=== PATIENT | male | born 1955 | race Caucasian/White ===

== ENCOUNTER 2018-06-29 23:14 | Emergency (ER) | payer BC, MEDICARE ==
[~2018-06-29 23:14] MED LIST: CEP500 PO; FEN145 PO; GLUC500C29 PO; GUALA600 PO; IBU800 PO; LANS30CA70 PO; LOR75 PO; MULT1CAP41 PO; NIA100 PO; NIAC100T35 PO
--- NOTE | 2018-06-29 23:21 | ER Report ---
History and Physical Time Seen By MD: 23:21 HPI/ROS CHIEF COMPLAINT: Dental pain, bloating HISTORY OF PRESENT ILLNESS: 63-year-old male presents ambulatory to the ER with 2-3 weeks of abdominal bloating and pain in the epigastrium radiating to his back. He describes 5/10 pain crampy in nature with intermittent changes. Patient notes no vomiting. He's had some mild nausea when the pain is severe. Patient's notes no hematuria or dysuria. Patient notes no change in bowel habits usually has 3 bowel movements per day. He takes note no blood in his stool. States it's been 5 years since he's had a colonoscopy which last one was unremarkable. Patient denies fever or chills. Patient notes no exacerbating or alleviating factors. REVIEW OF SYSTEMS: Respiratory: No cough, no dyspnea. Cardiovascular: No chest pain, no palpitations. Gastrointestinal: As above Musculoskeletal: As above Allergies: Uncoded Allergies: DOGS (Allergy, Mild, SINUS DRAINAGE, 12/18/07) DUST (Allergy, Mild, SINUS INFECTION, 12/18/07) FEATHERS (Allergy, Mild, SINUS DRAINAGE, 12/18/07) Home Meds Reported Medications Ranitidine Hcl (ZANTAC) 150 Mg Tablet, 150 MG PO BID, TAB 06/30/18 Pravastatin Sodium (PRAVACHOL) 20 Mg Tablet, 20 MG PO QDAY, TAB 06/30/18 Pantoprazole Sodium (PANTOPRAZOLE SODIUM) 40 Mg Tablet.dr, 40 MG PO QDAY, TAB.SR 06/30/18 Glimepiride (GLIMEPIRIDE) 2 Mg Tablet, 2 MG PO QDAY 06/30/18 Montelukast Sodium (SINGULAIR) 10 Mg Tablet, 1 TAB PO QDAY, TAB 06/30/18 Lisinopril (LISINOPRIL) 40 Mg Tablet, 40 MG PO QDAY, TAB 06/30/18 Metformin Hcl (METFORMIN HCL) 1,000 Mg Tablet, 1 TAB PO BID, TAB 06/30/18 Ibuprofen (Motrin) 800 Mg Tab, 0 PO Q8H, #30 0 Refills ONE TABLET BY MOUTH EVERY EIGHT HOURS NEEDED FOR PAIN 12/18/07 Multivitamins W-Minerals (Multivitamin) 1 Cap Capsule, 1 CAP PO DAILY 12/18/07 Niacin (Niacin) 100 Mg Tablet, 100 MG PO BID 12/18/07 Glucosamine Sulfate (Glucosamine) 500 Mg Capsule, 500 MG PO 12/18/07 Discontinued Reported Medications Acetaminophen/Hydrocodone (Lortab 7.5/500) 7.5 Mg/500 Mg Tab, 1 TAB PO Q4-6H, #20 ONE TABLET BY MOUTH EVERY 6-8 HOURS NEEDED FOR MODERATE PAIN 12/18/07 Cephalexin Monohydrate (Keflex) 500 Mg Cap, 0 PO QID, #20 0 Refills ONE TABLET BY MOUTH TWICE A DAY FOR 5 DAYS 12/18/07 Guaifenesin (Guaifenesin) 600 Mg Tabcr, 600 MG PO BID 12/18/07 Lansoprazole (Prevacid) 30 Mg Capsule.dr, 30 MG PO QDAY 12/18/07 Fenofibrate,Micronized (Tricor (Or Equiv)) 50 Mg Cap, 50 MG PO QDAY 12/18/07 Past Medical/Surgical History Past medical history: Hypertension, hypercholesterolemia, type II diabetes. Past surgical history ankle fracture, collar bone fracture, orthopedic procedures Reviewed Nurses Notes: Yes Old Medical Records Reviewed: Yes Constitutional Vital Sign - Last 24 Hours 06/29/18 06/29/18 06/29/18 06/29/18 23:18 23:22 23:29 23:44 Temp 97.8 Pulse 89 91 95 Resp 16 B/P (MAP) 139/81 139/81 (100) Pulse Ox 88 92 89 O2 Delivery Room Air 06/29/18 06/30/18 06/30/18 06/30/18 23:59 00:04 00:19 00:34 Pulse 86 88 86 ??? Pulse Ox 89 86 92 06/30/18 06/30/18 06/30/18 06/30/18 01:04 01:19 01:21 01:30 Pulse 78 75 B/P (MAP) 121/77 (92) 114/69 (84) Pulse Ox 89 92 06/30/18 06/30/18 01:34 01:44 Pulse 73 89 Resp 18 B/P (MAP) 114/69 (84) Pulse Ox 95 95 O2 Delivery Room Air Intake and Output 06/29/18 06/29/18 06/30/18 15:00 23:00 07:00 Intake Total 1000 ml Balance 1000 ml Physical Exam General Appearance: The patient is alert, has no immediate need for airway protection and no current signs of toxicity. No acute distress, vital signs stable, afebrile, pulse ox normal Eyes: Pupils equal and round no injection. Anicteric sclera Respiratory: Chest is non tender, lungs are clear to auscultation. Cardiac: regular rate and rhythm Gastrointestinal: Abdomen is soft, mild distention, mild epigastric tenderness, no organomegaly, no masses, bowel sounds normal. Musculoskeletal: Neck: Neck is supple and non tender. No lymphadenopathy Extremities have full range of motion and are non tender. No edema Skin: No rashes or lesions. DIFFERENTIAL DIAGNOSIS: After history and physical exam differential diagnosis was considered for abdominal pain including but not limited to appendicitis, cholecystitis, gastritis and urinary tract infection. Additionally,back pain including but not limited to muscular pain, herniated disc, spine fracture, intra-abdominal causes and urinary tract infection. Medical Decision Making Data Points Result Diagram: 06/29/18 3467 06/29/18 6871 Laboratory Hematology Test 06/29/18 23:28 06/29/18 23:59 Urine Color Yellow Urine Clarity Clear Urine pH 5.0 pH (4.8-9.5) Urine Specific [place] 1.014 Urine Protein Negative mg/dL (NEGATIVE) Urine Glucose (UA) 500 mg/dL (NEGATIVE) Urine Ketones Negative mg/dL (NEGATIVE) Urine Blood Negative (NEGATIVE) Urine Nitrite Negative (NEGATIVE) Urine Bilirubin Negative (NEGATIVE) Urine Urobilinogen Negative mg/dL (0.2-1.9) Urine Leukocyte Esterase Negative (NEGATIVE) Urine RBC <1 /HPF (0-2/HPF) Urine WBC 1 /HPF (0-5/HPF) Urine Squamous Epithelial Cells None /LPF (</=FEW) Urine Bacteria Negative /HPF (NONE-FEW) Urine Mucus None /HPF (NONE-FEW) Red Blood Count 5.56 M/uL (4.00-5.60) Mean Corpuscular Volume 92.2 fL (80.0-96.0) Mean Corpuscular Hemoglobin 31.5 pg (26.0-33.0) Mean Corpuscular Hemoglobin Concent 34.2 g/dL (32.0-36.0) Red Cell Distribution Width 13.8 % (11.5-14.5) Mean Platelet Volume 10.0 fL (7.2-11.1) Neutrophils (%) (Auto) 68.7 % (39.4-72.5) Lymphocytes (%) (Auto) 18.6 % (17.6-49.6) Monocytes (%) (Auto) 10.8 % (4.1-12.4) Eosinophils (%) (Auto) 1.2 % (0.4-6.7) Basophils (%) (Auto) 0.7 % (0.3-1.4) Nucleated RBC Relative Count (auto) 0.1 /100WBC Neutrophils # (Auto) 7.7 K/uL (2.0-7.4) Lymphocytes # (Auto) 2.1 K/uL (1.3-3.6) Monocytes # (Auto) 1.2 K/uL (0.3-1.0) Eosinophils # (Auto) 0.1 K/uL (0.0-0.5) Basophils # (Auto) 0.1 K/uL (0.0-0.1) Nucleated RBC Absolute Count (auto) 0.01 K/uL Prothrombin Time 12.4 seconds (12.0-14.4) Prothromb Time International Ratio 0.93 Activated Partial Thromboplast Time 32 seconds (23-35) Sodium Level 135 mmol/L (137-145) Potassium Level 4.1 mmol/L (3.5-5.0) Chloride Level 101 mmol/L (98-107) Carbon Dioxide Level 20 mmol/L (22-30) Blood Urea Nitrogen 34 mg/dl (9-21) Creatinine 1.60 mg/dl (0.66-1.25) Glomerular Filtration Rate Calc 43.7 Random Glucose 158 mg/dl (75-110) Calcium Level 9.9 mg/dl (8.4-10.2) Total Bilirubin 0.8 mg/dl (0.2-1.3) Aspartate Amino Transf (AST/SGOT) 18 U/L (0-35) Alanine Aminotransferase (ALT/SGPT) 25 U/L (0-56) Alkaline Phosphatase 59 U/L (0-126) Troponin I < 0.012 ng/ml Total Protein 7.2 g/dl (6.3-8.2) Albumin 3.9 g/dl (3.5-5.0) Amylase Level 80 U/L (0-110) Lipase 131 U/L (23-300) Chemistry Test 06/29/18 23:28 10/20/18 23:59 Urine Color Yellow Urine Clarity Clear Urine pH 5.0 pH (4.8-9.5) Urine Specific [place] 1.014 Urine Protein Negative mg/dL (NEGATIVE) Urine Glucose (UA) 500 mg/dL (NEGATIVE) Urine Ketones Negative mg/dL (NEGATIVE) Urine Blood Negative (NEGATIVE) Urine Nitrite Negative (NEGATIVE) Urine Bilirubin Negative (NEGATIVE) Urine Urobilinogen Negative mg/dL (0.2-1.9) Urine Leukocyte Esterase Negative (NEGATIVE) Urine RBC <1 /HPF (0-2/HPF) Urine WBC 1 /HPF (0-5/HPF) Urine Squamous Epithelial Cells None /LPF (</=FEW) Urine Bacteria Negative /HPF (NONE-FEW) Urine Mucus None /HPF (NONE-FEW) White Blood Count 11.3 k/uL (4.5-11.0) Red Blood Count 5.56 M/uL (4.00-5.60) Hemoglobin 17.5 g/dL (14.0-18.0) Hematocrit 51.3 % (42.0-52.0) Mean Corpuscular Volume 92.2 fL (80.0-96.0) Mean Corpuscular Hemoglobin 31.5 pg (26.0-33.0) Mean Corpuscular Hemoglobin Concent 34.2 g/dL (32.0-36.0) Red Cell Distribution Width 13.8 % (11.5-14.5) Platelet Count 233 K/uL (150-450) Mean Platelet Volume 10.0 fL (7.2-11.1) Neutrophils (%) (Auto) 68.7 % (39.4-72.5) Lymphocytes (%) (Auto) 18.6 % (17.6-49.6) Monocytes (%) (Auto) 10.8 % (4.1-12.4) Eosinophils (%) (Auto) 1.2 % (0.4-6.7) Basophils (%) (Auto) 0.7 % (0.3-1.4) Nucleated RBC Relative Count (auto) 0.1 /100WBC Neutrophils # (Auto) 7.7 K/uL (2.0-7.4) Lymphocytes # (Auto) 2.1 K/uL (1.3-3.6) Monocytes # (Auto) 1.2 K/uL (0.3-1.0) Eosinophils # (Auto) 0.1 K/uL (0.0-0.5) Basophils # (Auto) 0.1 K/uL (0.0-0.1) Nucleated RBC Absolute Count (auto) 0.01 K/uL Prothrombin Time 12.4 seconds (12.0-14.4) Prothromb Time International Ratio 0.93 Activated Partial Thromboplast Time 32 seconds (23-35) Glomerular Filtration Rate Calc 43.7 Calcium Level 9.9 mg/dl (8.4-10.2) Total Bilirubin 0.8 mg/dl (0.2-1.3) Aspartate Amino Transf (AST/SGOT) 18 U/L (0-35) Alanine Aminotransferase (ALT/SGPT) 25 U/L (0-56) Alkaline Phosphatase 59 U/L (0-126) Troponin I < 0.012 ng/ml Total Protein 7.2 g/dl (6.3-8.2) Albumin 3.9 g/dl (3.5-5.0) Amylase Level 80 U/L (0-110) Lipase 131 U/L (23-300) Coagulation Test 06/29/18 23:59 Prothrombin Time 12.4 seconds Prothromb Time International Ratio 0.93 Activated Partial Thromboplast Time 32 seconds Urinalysis Test 06/29/18 23:28 Urine Color Yellow Urine Clarity Clear Urine pH 5.0 pH (4.8-9.5) Urine Specific [place] 1.014 Urine Protein Negative mg/dL (NEGATIVE) Urine Glucose (UA) 500 mg/dL (NEGATIVE) Urine Ketones Negative mg/dL (NEGATIVE) Urine Blood Negative (NEGATIVE) Urine Nitrite Negative (NEGATIVE) Urine Bilirubin Negative (NEGATIVE) Urine Urobilinogen Negative mg/dL (0.2-1.9) Urine Leukocyte Esterase Negative (NEGATIVE) Urine RBC <1 /HPF (0-2/HPF) Urine WBC 1 /HPF (0-5/HPF) Urine Squamous Epithelial Cells None /LPF (</=FEW) Urine Bacteria Negative /HPF (NONE-FEW) Urine Mucus None /HPF (NONE-FEW) EKG/Imaging EKG Interpretation 12 lead EK Rhythm: normal sinus rhythm [place]: normal QRS: normal ST segments: normaL , no evidence of ischemia or dysrhythmia Imaging Results: CT scan of the abdomen and pelvis without contrast was obtained. The results of the study are CT of the abdomen and pelvis without contrast: Indication: Back pain and bloating. Technique: Helical CT was performed through the abdomen and pelvis without contrast. Multiplanar reconstructions are reviewed. One of the following dose optimization techniques was utilized in the performance of this exam: Automated exposure control; adjustment of the mA and/or kV according to the patient's size; or use of an iterative reconstruction technique. Specific details can be referenced in the facility's radiology CT exam operational policy. Comparison: 05/25/2010 Lower lung [place]: There is minimal linear atelectasis at the right base. No parenchymal consolidation or pleural effusion is identified. Liver: Normal in size, shape, and density. Gallbladder/biliary tree: The gallbladder is normal in size and homogeneous in density. The bile ducts are normal in caliber. Pancreas: Normal in size, shape, and density. Spleen: Normal in size, shape, and density. A tiny accessory spleen is incidentally noted. Adrenal glands: Within normal limits. Kidneys/urinary bladder: The kidneys are normal in size, shape, and density. There are no signs of urinary tract calculus or obstruction. The bladder is unremarkable, as visualized. Intestinal structures: There is moderate diverticulosis in the sigmoid colon. There are no signs of acute diverticulitis. The appendix appears normal. There are no signs of intestinal obstruction. Pelvis: There is a small uncomplicated left inguinal hernia. The pelvis is otherwise unremarkable. Aorta and vascular structures: Within normal limits. Ascites or fluid collections: None seen. Skeletal structures: There are marked degenerative changes and large osteophytes in the lower thoracic spine and lower lumbar spine. No acute skeletal deformity is identified. Impression: No acute process is identified in the abdomen or pelvis. The study was read by the radiologist. I viewed the images myself on the PACS system. ED Course/Re-evaluation Clinical Indication for ER IV: Hydration, IV Access ED Course Patient was admitted to an examination room. H&P was done. The differential diagnoses was considered. On clinical examination. Patient has a mildly protuberant abdomen. There is mild epigastric tenderness, no guarding or rebound. There is no CVA tenderness on examination of the back. Patient's treated with IV fluid hydration. A CT scan of the abdomen is ordered to rule out bowel obstruction or other pathology. CT scan was unremarkable. Patient's diagnostic laboratory tests are unremarkable. He does have some minor renal insufficiency. Patient advised to follow-up with his primary care physician for further evaluation, treatment of his symptoms. Decision to Disposition Date: Jun 30, 2018 Decision to Disposition Time: 01:41 Depart Departure Latest Vital Signs Vital Signs Date Time Temp Pulse Resp B/P (MAP) Pulse Ox O2 Delivery O2 Flow Rate FiO2 06/30/18 01:44 89 18 114/69 (84) 95 Room Air 06/29/18 23:18 97.8 Impression: Primary Impression: Abdominal bloating Additional Impressions: Back pain Type II diabetes mellitus Chronic renal insufficiency, stage I Condition: Improved Disposition: HOME OR SELF-CARE Referrals: ARIANA LARRY MD (PCP) Patient Instructions: Abdominal Pain (ED) Additional Instructions: Follow-up with your primary care physician for further evaluation Problem Qualifiers Additional Impressions: Back pain Back pain location: thoracic back pain Chronicity: unspecified Back pain laterality: midline Qualified Codes: M54.6 - Pain in thoracic spine Type II diabetes mellitus Diabetes mellitus long-term insulin use: without long-term use Diabetes mellitus complication status: without complication Qualified Codes: E11.9 - Type 2 diabetes mellitus without complications TORIBIO WARREN DO Jun 29, 2018 23:21
[2018-06-29] MEDS ORDERED: NS(*) 0.9% 1000 ML BAG 1,000 ML IV ONE (23:37)
[2018-06-30] MEDS ORDERED: IOPAMIDOL 76% 75 ML INFUS BTL 0 ML ONE
--- NOTE | 2018-06-30 00:09 | EKG ---
FACILITY: [facility] [place] PATIENT NAME: CHARLOTTE ZHAO : [id number] MR: [id number] V: [id number] EXAM DATE: ORDERING PHYSICIAN: TORIBIO WARREN TECHNOLOGIST: Test Reason : BACK, ABD PAIN Blood Pressure : / mmHG Vent. Rate : 091 BPM Atrial Rate : 091 BPM P-R Int : 176 ms QRS Dur : 102 ms QT Int : 374 ms P-R-T Axes : 049 080 057 degrees QTc Int : 460 ms Normal sinus rhythm Normal ECG No previous ECGs available Confirmed by LAM LESLIE ([id number]) on 06/30/2018 6:36:17 AM Referred By: KELVIN Confirmed By:LAM LESLIE
[2018-06-30 00:11] LABS: PLATELET COUNT, AUTOMATED 233 K/uL (150-450)
[2018-06-30 00:18] LABS: INR 0.93
[2018-06-30] MEDS ORDERED: PANT40TA65 PO (01:02)
[2018-06-30] MEDS ORDERED: PRAV20TA65 PO (01:02)
[2018-06-30] MEDS ORDERED: GLIM2TAB43 PO (01:02)
[2018-06-30] MEDS ORDERED: METF-452 PO (01:02)
[2018-06-30] MEDS ORDERED: MONT10TA PO (01:02)
[2018-06-30] MEDS ORDERED: LISI-374 PO (01:02)
[2018-06-30] MEDS ORDERED: RANI-366 PO (01:02)
--- NOTE | 2018-06-30 01:33 | RADIOLOGY IMAGING REPORT ---
FACILITY: [facility] PATIENT NAME: Edison Marquez : 1955 MR: [id number] V: [id number] EXAM DATE: ORDERING PHYSICIAN: TORIBIO WARREN TECHNOLOGIST: Location: [facility] [place] Patient: Edison Marquez : 1955 Visit/Account:[id number] Date of Sevice: 06/30/2018 CT of the abdomen and pelvis without contrast: Indication: Back pain and bloating. Technique: Helical CT was performed through the abdomen and pelvis without contrast. Multiplanar rec onstructions are reviewed. One of the following dose optimization techniques was utilized in the performance of this exam: Autom ated exposure control; adjustment of the mA and/or kV according to the patient's size; or use of an i terative reconstruction technique. Specific details can be referenced in the facility's radiology CT exam operational policy. Comparison: 05/25/2010 [place] lung [place]: There is minimal linear atelectasis at the right base. No parenchymal consolidatio n or pleural effusion is identified. Liver: Normal in size, shape, and density. Gallbladder/biliary tree: The gallbladder is normal in size and homogeneous in density. The bile duct s are normal in caliber. Pancreas: Normal in size, shape, and density. Spleen: Normal in size, shape, and density. A tiny accessory spleen is incidentally noted. Adrenal glands: Within normal limits. Kidneys/urinary bladder: The kidneys are normal in size, shape, and density. There are no signs of ur inary tract calculus or obstruction. The bladder is unremarkable, as visualized. Intestinal structures: There is moderate diverticulosis in the sigmoid colon. There are no signs of a cute diverticulitis. The appendix appears normal. There are no signs of intestinal obstruction. Pelvis: There is a small uncomplicated left inguinal hernia. The pelvis is otherwise unremarkable. Aorta and vascular structures: Within normal limits. Ascites or fluid collections: None seen. Skeletal structures: There are marked degenerative changes and large osteophytes in the lower thoraci c spine and lower lumbar spine. No acute skeletal deformity is identified. Impression: No acute process is identified in the abdomen or pelvis. Report Dictated By: Fede Briggs MD at 06/30/2018 1:19 AM Report E-Signed By: Fede Briggs MD at 06/30/2018 1:29 AM WSN:[id number]
[2018-06-30 01:44] VITALS: BP 114/69
== END 2018-06-30 01:55 | disposition home or self-care (01) ==
LOC: ER 23:29
DX: R14.0 Abdominal distension (gaseous) (principal); M54.6 Pain in thoracic spine; E11.9 Type 2 diabetes mellitus without complications; N18.1 Chronic kidney disease, stage 1
CPT/HCPCS: 74176; 81001; 82150; 83690; 84484; 85025; 85610; 85730; 93005; 96360; 99284; J7030; 82040; 82247; 82310; 82374; 82435; 82565; 82947; 84075; 84132; 84155; 84295; 84450; 84460; 84520; Q9967

== ENCOUNTER 2018-08-27 09:46 | Emergency (ER) | payer BC, MEDICARE ==
--- NOTE | 2018-08-27 10:04 | ER Report ---
History and Physical Time Seen By MD: 10:04 Hx. of Stated Complaint: Pt. not feeling well for 2 days. Abdominal pain, blood in urine. Pain 04/19. Tachypneic, RR 40. Diarrhea for two days. HPI/ROS 63 y/o male with a history of hypertension, hyperlipidemia, and DM presents to the ED with SOB. He reported diarrhea, fever, and abdominal pain for the past 48 hours. ALso with SOB that started today. No trauma. Same abdominal pain in June, and was seen in the ED. Also reports hematuria. Has a history of prostate cancer, and is s/p prostatectomy. He has been taking less by mouth due to his abdominal pain. Reported abdominal pain is not focal. Severe amount history in his 20s where he abuse alcohol, but has not drank alcohol in 10 years. No travel. Reports abdominal pain a 3 out of 10, and is mostly concerned with his diarrhea. He denies hematemesis or hematochezia. Remainder of the 14 system rev: Yes Allergies: Uncoded Allergies: DOGS (Allergy, Mild, SINUS DRAINAGE, 12/18/07) DUST (Allergy, Mild, SINUS INFECTION, 12/18/07) FEATHERS (Allergy, Mild, SINUS DRAINAGE, 12/18/07) Home Meds Reported Medications Ranitidine Hcl (ZANTAC) 150 Mg Tablet, 150 MG PO BID, TAB 06/30/18 Pravastatin Sodium (PRAVACHOL) 20 Mg Tablet, 20 MG PO QDAY, TAB 06/30/18 Pantoprazole Sodium (PANTOPRAZOLE SODIUM) 40 Mg Tablet.dr, 40 MG PO QDAY, TAB.SR 06/30/18 Glimepiride (GLIMEPIRIDE) 2 Mg Tablet, 2 MG PO QDAY 06/30/18 Montelukast Sodium (SINGULAIR) 10 Mg Tablet, 1 TAB PO QDAY, TAB 06/30/18 Lisinopril (LISINOPRIL) 40 Mg Tablet, 40 MG PO QDAY, TAB 06/30/18 Metformin Hcl (METFORMIN HCL) 1,000 Mg Tablet, 1 TAB PO BID, TAB 06/30/18 Ibuprofen (Motrin) 800 Mg Tab, 0 PO Q8H, #30 0 Refills ONE TABLET BY MOUTH EVERY EIGHT HOURS NEEDED FOR PAIN 12/18/07 Multivitamins W-Minerals (Multivitamin) 1 Cap Capsule, 1 CAP PO DAILY 12/18/07 Niacin (Niacin) 100 Mg Tablet, 100 MG PO BID 12/18/07 Glucosamine Sulfate (Glucosamine) 500 Mg Capsule, 500 MG PO 12/18/07 Reviewed Nurses Notes: Yes Old Medical Records Reviewed: Yes Hx Smoking: No Smoking Status: Never Smoker Exposure to Second Hand Smoke?: No Hx Substance Use Disorder: No Hx Alcohol Use: Yes Constitutional Vital Sign - Last 24 Hours 08/27/18 08/27/18 08/27/18 08/27/18 09:46 09:58 10:00 10:00 Pulse 148 Resp 28 B/P (MAP) 92/69 (77) 96/75 (82) Pulse Ox 89 O2 Delivery Oxy Mask O2 Flow Rate 6 6.0 08/27/18 08/27/18 08/27/18 08/27/18 10:12 10:13 10:16 10:20 Pulse 111 Resp 26 B/P (MAP) 72/56 (61) 82/67 (72) 81/60 (67) Pulse Ox 92 O2 Delivery Oxy Mask O2 Flow Rate 6 08/27/18 08/27/18 08/27/18 08/27/18 10:28 10:30 10:40 10:42 B/P (MAP) 80/69 (73) 97/61 (73) 97/55 (69) 80/58 (65) 08/27/18 08/27/18 08/27/18 08/27/18 10:46 10:50 10:55 11:00 Pulse 101 Resp 29 B/P (MAP) 94/68 (77) 105/67 (80) 116/59 (78) 125/72 (89) Pulse Ox 95 O2 Delivery Oxy Mask O2 Flow Rate 6 08/27/18 08/27/18 08/27/18 08/27/18 11:06 11:10 11:16 11:21 Pulse 116 126 Resp 36 31 B/P (MAP) 104/67 (79) 108/83 (91) Pulse Ox 94 91 O2 Delivery Oxy Mask O2 Flow Rate 6 08/27/18 08/27/18 08/27/18 08/27/18 11:26 11:30 11:31 11:32 Pulse 134 97 Resp 27 29 B/P (MAP) 96/54 (68) Pulse Ox 92 96 FiO2 40.0 12/18/08/27/18 08/27/18 08/27/18 11:36 11:41 11:46 11:51 Pulse 98 96 95 93 Resp 30 23 31 23 B/P (MAP) 85/58 (67) Pulse Ox 96 96 98 96 08/27/18 08/27/18 08/27/18 08/27/18 11:56 12:00 12:01 12:06 Pulse 95 94 94 Resp 30 27 B/P (MAP) 98/63 (75) 104/54 (71) Pulse Ox 95 96 08/27/18 08/27/18 08/27/18 08/27/18 12:10 12:11 12:16 12:20 Pulse 94 92 Resp 23 35 B/P (MAP) 73/60 (64) 105/50 (68) 85/54 (64) Pulse Ox 94 96 08/27/18 08/27/18 08/27/18 08/27/18 12:21 12:24 12:26 12:30 Pulse 90 90 Resp 29 28 B/P (MAP) 89/51 (64) 92/53 (66) Pulse Ox 95 96 08/27/18 08/27/18 08/27/18 08/27/18 12:31 12:35 12:36 12:40 Pulse 91 89 Resp 28 28 B/P (MAP) 99/56 (70) 96/58 (71) Pulse Ox 98 96 08/27/18 08/27/18 08/27/18 08/27/18 12:41 12:44 12:44 12:45 Pulse 89 Resp 29 B/P (MAP) 107/65 (79) Pulse Ox 98 97 O2 Delivery Bi-PAP FiO2 35.0 35.0 08/27/18 08/27/18 08/27/18 08/27/18 12:46 12:50 12:55 13:00 Pulse 91 90 91 Resp 23 29 28 B/P (MAP) 88/60 (69) 103/57 (72) 106/58 (74) Pulse Ox 94 95 96 08/27/18 08/27/18 08/27/18 08/27/18 13:01 13:05 13:10 13:15 Temp 95.5 Pulse 93 94 93 Resp 20 31 30 B/P (MAP) 113/58 (76) 103/52 (69) 107/66 (80) Pulse Ox 94 95 96 12/18/18 12/18/18 12/18/18 12/18/18 13:20 13:25 13:30 13:34 Temp 98.4 Pulse 94 92 93 Resp 30 26 32 B/P (MAP) 115/67 (83) 112/63 (79) Pulse Ox 95 96 94 12/18/18 12/18/18 12/18/18 1218/18 13:35 13:40 13:45 13:50 Pulse 98 93 92 94 Resp 30 31 30 31 B/P (MAP) 116/56 (76) 112/55 (74) Pulse Ox 94 95 94 95 12/18/18 12/18/18 12/18/18 1218/18 13:55 13:57 14:00 14:05 Temp 98.9 Pulse 94 96 96 Resp 29 30 31 B/P (MAP) 118/63 (81) Pulse Ox 95 95 96 18/18 1218/18 1218/18 1218 14:10 14:15 14:20 14:25 Pulse 98 97 98 96 Resp 21 30 25 34 B/P (MAP) 128/67 (87) Pulse Ox 95 95 94 95 12/18/18 1218/18 12/18/18 1218/18 14:30 14:35 14:40 14:45 Pulse 98 98 99 Resp 7 28 13 B/P (MAP) 119/44 (69) 125/66 (85) Pulse Ox 92 96 97 18/18 1218/18 1218/18 121818 14:50 14:55 15:00 15:05 Pulse 100 101 101 107 Resp 27 17 16 11 B/P (MAP) 136/59 (84) Pulse Ox 96 97 96 96 12/18/18 12/18/18 12/18/18 12/18/18 15:10 15:14 15:15 15:20 Temp 100.2 Pulse 106 104 104 Resp 34 35 35 B/P (MAP) 122/69 (86) Pulse Ox 88 93 94 12/18/18 12/18/18 12/18/18 1218/18 15:25 15:30 15:35 15:40 Pulse 104 102 106 110 Resp 35 17 26 25 B/P (MAP) 119/58 (78) Pulse Ox 95 98 94 08/27/18 08/27/18 15:45 15:50 Pulse 113 114 Resp 35 36 B/P (MAP) 160/79 (106) Pulse Ox 95 94 Physical Exam General Appearance: The patient is alert, has no immediate need for airway protection and no signs of toxicity. Eyes: Pupils equal and round no pallor or injection. ENT, Mouth: Mucous membranes are dry Respiratory: He has labored breathing with no wheezing/rales/rhonchi Cardiovascular: Tachycardic irregular Gastrointestinal: Abdomen is diffusely tender Neurological: gross strength and sensation in tact Skin: Warm and dry, no rashes. Musculoskeletal: Neck is supple non tender. Extremities are nontender, nonswollen and have full range of motion. DIFFERENTIAL DIAGNOSIS: After history and physical exam differential diagnosis was considered for abdominal pain including but not limited to appendicitis, cholecystitis, gastritis,sepsis, and urinary tract infection. Medical Decision Making Data Points Result Diagram: 08/27/18 1012 08/27/18 1438 Laboratory Hematology Test 08/27/18 00:00 08/27/18 10:12 08/27/18 12:55 08/27/18 14:38 Troponin I 0.094 ng/ml Red Blood Count 5.56 M/uL (4.00-5.60) Mean Corpuscular Volume 95.0 fL (80.0-96.0) Mean Corpuscular Hemoglobin 31.4 pg (26.0-33.0) Mean Corpuscular Hemoglobin Concent 33.0 g/dL (32.0-36.0) Red Cell Distribution Width 14.3 % (11.5-14.5) Mean Platelet Volume 10.9 fL (7.2-11.1) Neutrophils (%) (Auto) % (39.4-72.5) Lymphocytes (%) (Auto) % (17.6-49.6) Monocytes (%) (Auto) % (4.1-12.4) Eosinophils (%) (Auto) % (0.4-6.7) Basophils (%) (Auto) % (0.3-1.4) Nucleated RBC Relative Count (auto) /100WBC Neutrophils # (Auto) K/uL (2.0-7.4) Lymphocytes # (Auto) K/uL (1.3-3.6) Monocytes # (Auto) K/uL (0.3-1.0) Eosinophils # (Auto) K/uL (0.0-0.5) Basophils # (Auto) K/uL (0.0-0.1) Nucleated RBC Absolute Count (auto) K/uL Neutrophils % (Manual) 60 % (39.4-72.5) Band Neutrophils % 21 % Lymphocytes % (Manual) 13 % (17.6-49.6) Monocytes % (Manual) 6 % (4.1-12.4) Eosinophils % (Manual) 0 % (0.4-6.7) Basophils % (Manual) 0 % (0.3-1.4) Peripheral Blood Smear Yes Y/N Prothrombin Time 15.5 seconds (12.0-14.4) Prothromb Time International Ratio 1.22 Activated Partial Thromboplast Time 35 seconds (23-35) Lipase 169 U/L (23-300) Blood Gas Puncture Site Right radial Blood Gas Patient Temperature 35.5 DEGREES Arterial Blood pH 7.19 (7.35-7.45) Arterial Blood Partial Pressure CO2 31 mmHg (32-37) Arterial Blood Partial Pressure O2 72 mmHg (60-80) Arterial Blood HCO3 12 mmol/L (20-26) Arterial Blood Oxygen Saturation 92 % (92-100) Arterial Blood Base Excess -17.0 mmol/L Adryan Test Acceptable Oxygen Liters/Minute 35% Sodium Level 132 mmol/L (137-145) Potassium Level 5.8 mmol/L (3.5-5.0) Chloride Level 104 mmol/L (98-107) Carbon Dioxide Level 13 mmol/L (22-30) Blood Urea Nitrogen 60 mg/dl (9-21) Creatinine 4.50 mg/dl (0.66-1.25) Glomerular Filtration Rate Calc 13.2 Random Glucose 143 mg/dl (75-110) Lactate 3.3 mmol/L (0.7-2.1) Calcium Level 7.3 mg/dl (8.4-10.2) Total Bilirubin 14.5 mg/dl (0.2-1.3) Aspartate Amino Transf (AST/SGOT) 557 U/L (0-35) Alanine Aminotransferase (ALT/SGPT) 446 U/L (0-56) Alkaline Phosphatase 152 U/L (0-126) Total Protein 6.5 g/dl (6.3-8.2) Albumin 3.1 g/dl (3.5-5.0) Test 08/27/18 14:54 Urine Color Heather Urine Clarity Cloudy Urine pH 5.0 pH (4.8-9.5) Urine Specific [place] 1.019 Urine Protein 30 mg/dL (NEGATIVE) Urine Glucose (UA) 150 mg/dL (NEGATIVE) Urine Ketones Negative mg/dL (NEGATIVE) Urine Blood Small (NEGATIVE) Urine Nitrite Negative (NEGATIVE) Urine Bilirubin Small (NEGATIVE) Urine Urobilinogen 4.0 mg/dL (0.2-1.9) Urine Leukocyte Esterase Negative (NEGATIVE) Urine RBC 9 /HPF (0-2/HPF) Urine WBC 19 /HPF (0-5/HPF) Urine WBC Clumps Few /HPF Urine Squamous Epithelial Cells None /LPF (NONE-FEW) Urine Bacteria Few /HPF (NONE-FEW) Urine Mucus Few /HPF (NONE-FEW) Chemistry Test 08/27/18 00:00 08/27/18 10:12 08/27/18 12:55 08/27/18 14:38 Troponin I 0.094 ng/ml White Blood Count 19.6 k/uL (4.5-11.0) Red Blood Count 5.56 M/uL (4.00-5.60) Hemoglobin 17.4 g/dL (14.0-18.0) Hematocrit 52.8 % (42.0-52.0) Mean Corpuscular Volume 95.0 fL (80.0-96.0) Mean Corpuscular Hemoglobin 31.4 pg (26.0-33.0) Mean Corpuscular Hemoglobin Concent 33.0 g/dL (32.0-36.0) Red Cell Distribution Width 14.3 % (11.5-14.5) Platelet Count 194 K/uL (150-450) Mean Platelet Volume 10.9 fL (7.2-11.1) Neutrophils (%) (Auto) % (39.4-72.5) Lymphocytes (%) (Auto) % (17.6-49.6) Monocytes (%) (Auto) % (4.1-12.4) Eosinophils (%) (Auto) % (0.4-6.7) Basophils (%) (Auto) % (0.3-1.4) Nucleated RBC Relative Count (auto) /100WBC Neutrophils # (Auto) K/uL (2.0-7.4) Lymphocytes # (Auto) K/uL (1.3-3.6) Monocytes # (Auto) K/uL (0.3-1.0) Eosinophils # (Auto) K/uL (0.0-0.5) Basophils # (Auto) K/uL (0.0-0.1) Nucleated RBC Absolute Count (auto) K/uL Neutrophils % (Manual) 60 % (39.4-72.5) Band Neutrophils % 21 % Lymphocytes % (Manual) 13 % (17.6-49.6) Monocytes % (Manual) 6 % (4.1-12.4) Eosinophils % (Manual) 0 % (0.4-6.7) Basophils % (Manual) 0 % (0.3-1.4) Peripheral Blood Smear Yes Y/N Prothrombin Time 15.5 seconds (12.0-14.4) Prothromb Time International Ratio 1.22 Activated Partial Thromboplast Time 35 seconds (23-35) Lipase 169 U/L (23-300) Blood Gas Puncture Site Right radial Blood Gas Patient Temperature 35.5 DEGREES Arterial Blood pH 7.19 (7.35-7.45) Arterial Blood Partial Pressure CO2 31 mmHg (32-37) Arterial Blood Partial Pressure O2 72 mmHg (60-80) Arterial Blood HCO3 12 mmol/L (20-26) Arterial Blood Oxygen Saturation 92 % (92-100) Arterial Blood Base Excess -17.0 mmol/L Adryan Test Acceptable Oxygen Liters/Minute 35% Glomerular Filtration Rate Calc 13.2 Lactate 3.3 mmol/L (0.7-2.1) Calcium Level 7.3 mg/dl (8.4-10.2) Total Bilirubin 14.5 mg/dl (0.2-1.3) Aspartate Amino Transf (AST/SGOT) 557 U/L (0-35) Alanine Aminotransferase (ALT/SGPT) 446 U/L (0-56) Alkaline Phosphatase 152 U/L (0-126) Total Protein 6.5 g/dl (6.3-8.2) Albumin 3.1 g/dl (3.5-5.0) Test 08/27/18 14:54 Urine Color Heather Urine Clarity Cloudy Urine pH 5.0 pH (4.8-9.5) Urine Specific [place] 1.019 Urine Protein 30 mg/dL (NEGATIVE) Urine Glucose (UA) 150 mg/dL (NEGATIVE) Urine Ketones Negative mg/dL (NEGATIVE) Urine Blood Small (NEGATIVE) Urine Nitrite Negative (NEGATIVE) Urine Bilirubin Small (NEGATIVE) Urine Urobilinogen 4.0 mg/dL (0.2-1.9) Urine Leukocyte Esterase Negative (NEGATIVE) Urine RBC 9 /HPF (0-2/HPF) Urine WBC 19 /HPF (0-5/HPF) Urine WBC Clumps Few /HPF Urine Squamous Epithelial Cells None /LPF (NONE-FEW) Urine Bacteria Few /HPF (NONE-FEW) Urine Mucus Few /HPF (NONE-FEW) Coagulation Test 08/27/18 10:12 Prothrombin Time 15.5 seconds Prothromb Time International Ratio 1.22 Activated Partial Thromboplast Time 35 seconds Urinalysis Test 08/27/18 14:54 Urine Color Heather Urine Clarity Cloudy Urine pH 5.0 pH (4.8-9.5) Urine Specific [place] 1.019 Urine Protein 30 mg/dL (NEGATIVE) Urine Glucose (UA) 150 mg/dL (NEGATIVE) Urine Ketones Negative mg/dL (NEGATIVE) Urine Blood Small (NEGATIVE) Urine Nitrite Negative (NEGATIVE) Urine Bilirubin Small (NEGATIVE) Urine Urobilinogen 4.0 mg/dL (0.2-1.9) Urine Leukocyte Esterase Negative (NEGATIVE) Urine RBC 9 /HPF (0-2/HPF) Urine WBC 19 /HPF (0-5/HPF) Urine WBC Clumps Few /HPF Urine Squamous Epithelial Cells None /LPF (NONE-FEW) Urine Bacteria Few /HPF (NONE-FEW) Urine Mucus Few /HPF (NONE-FEW) ED Course/Re-evaluation ED Course Patient with diffuse diarrhea, abdominal pain, jaundice, and initially new onset A. fib with RVR upon presentation to the emergency department. Started with fluid resuscitation and soon after we realized the patient was septic. Also with renal failure likely from volume depletion as well as sepsis. Sepsis protocol started. Given broad-spectrum antibiotics. Given fluid resuscitation and subsequently 2 doses of diltiazem for his A. fib with RVR. Eventually the patient spontaneously converted to sinus rhythm and his blood pressure mildly improved. Noted to be in renal failure with a creatinine of 4. CT scan significant for multiple diffuse small abscesses in his liver with one cavitary lesion likely from a gas forming bacteria. I am source of hematogenous spread, however likely diverticulitis given similar episode in June. Breathing became more labored, and eventually the patient was intubated. A central line was placed as well. The patient made only 20 mL of urine after 6 L of fluids, so decision made to transfer the patient to a higher level of care in case of need for dialysis. He was transported to [facility] to be admitted to the ICU and for further stabilization. Procedure Procedure: Central line placement. After verbal informed consent from family; with the risks explained to be bleeding, infection, and collapsed lung; maximal sterile barrier technique was uses including cap, gown, sterile gloves, large sheet, hand washing and chlorhexidine prep. The area anesthetized with 1% lidocaine. The right IJ was punctured with a 19 gauge finder needle, then a wire introducer was placed, a 7 Faro[place] triple lumen was placed using Seldinger technique. There were no complications. Blood return low pressure, dark blood. Patient tolerated pro cedure well. CXR results: confirmed placement Appropriate line placement, and no pneumothorax. Xray was interpreted by myself. Radiologist interpretation is pending. The procedure was performed by myself. Procedure: Rapid sequence intubation. Indication for the procedure was respiratory failure. The patient was preoxygenated with 100% oxygen by BIPAP. The patient was given the following IV medications: Etomidate succinylcholine, . The patient was orally endotracheally intubated [under direct visualization] with a 7.5 ETT. . Tracheal intubation was confirmed with misting on the tube; breath sounds were auscultated equally bilaterally; appropriate color change with [place] CO2 detector. Chest X-ray shows ETT in good position. The procedure was performed by myself. Decision to Disposition Date: Aug 27, 2018 Decision to Disposition Time: 17:03 Critical Care Time I spent a total of 90 of critical care time in obtaining history, performing a physical exam, bedside monitoring of interventions, collecting and interpreting tests and discussion with consultants but not including time spent performing procedures. Depart Departure Latest Vital Signs Vital Signs Date Time Temp Pulse Resp B/P (MAP) Pulse Ox O2 Delivery O2 Flow Rate FiO2 08/27/18 15:50 114 36 94 08/27/18 15:45 160/79 (106) 08/27/18 15:14 100.2 08/27/18 12:44 Bi-PAP 35.0 08/27/18 11:16 6 Impression: Primary Impression: Abdominal bloating Additional Impressions: Sepsis Renal failure Liver abscess Jaundice Respiratory failure Condition: Critical Disposition: XFER TO [facility] Referrals: ARIANA LARRY MD (PCP) Problem Qualifiers Additional Impressions: Sepsis Sepsis type: sepsis due to unspecified organism Qualified Codes: A41.9 - Sepsis, unspecified organism Renal failure Renal failure chronicity: acute Acute renal failure type: unspecified Qualified Codes: N17.9 - Acute kidney failure, unspecified Respiratory failure Chronicity: acute Respiratory failure complication: unspecified whether with hypoxia or hypercapnia Qualified Codes: J96.00 - Acute respiratory failure, unspecified whether with hypoxia or hypercapnia HERNAN ORTEGA MD Aug 27, 2018 10:04
[2018-08-27] MEDS: DILTIAZEM 5 MG/ML 5ML IVPUSH ONE ×2 (10:36→10:40)
[2018-08-27] MEDS ORDERED: ASPIRIN 81 MG CHEW ONE (10:37)
[2018-08-27] MEDS ORDERED: NS 0.9% IV ONE (10:40)
[2018-08-27] MEDS ORDERED: ETOMIDATE 20 MG/10 ML VIAL IVP ONE ×2 (10:50→16:20)
[2018-08-27 10:56] LABS: INR 1.22
[2018-08-27 10:57] LABS: PLATELET COUNT, AUTOMATED 194 K/uL (150-450)
[2018-08-27] MEDS ORDERED: DILTIAZEM 5 MG/ML 5ML IVPUSH ONE (11:04)
[2018-08-27] MEDS ORDERED: DILTIAZEM HCL* 100 MG ADDVIAL 100 MG in NS(*) 0.9% 100 ML ADDVANT BAG 100 ML IV SCH (11:15)
[2018-08-27] MEDS ORDERED: VANCOMYCIN 1 GM ADDVIAL 1 GM in NS(*) 0.9% 250 ML ADDVAN BAG 250 ML IVPB ONE (11:20)
[2018-08-27] MEDS ORDERED: PIPERACILLIN/TAZO*3.375GM VIAL 3.375 GM in NS(*) 0.9% 100 ML ADDVANT BAG 100 ML IVPB ONE (11:20)
[2018-08-27] MEDS ORDERED: DILTIAZEM 5 MG/ML 5ML IVPUSH IVP ONE (11:20)
--- NOTE | 2018-08-27 11:21 | RADIOLOGY IMAGING REPORT ---
FACILITY: PATIENT NAME: Edison Marquez : 1955 MR: [id number] V: [id number] EXAM DATE: ORDERING PHYSICIAN: HERNAN ORTEGA TECHNOLOGIST: Location: [facility] Patient: Edison Marquez : 1955 Visit/Account:[id number] Date of Sevice: 08/27/2018 Exam type: CHEST SINGLE AP History: sob, chest pain Comparison: May 25, 2010. Findings: There are hypoventilatory changes from a limited inspiratory effort. There is interstitial prominenc e throughout the lungs. Patchy airspace consolidation also noted in the right lung base. Cardiac si lhouette is normal in size. There are postsurgical changes of the left clavicle. IMPRESSION: 1. Interstitial prominence of the lungs could be related to interstitial pulmonary edema versus inte rstitial pneumonia Patchy airspace consolidation the right lung base consistent with infiltrate and/or atelectasis Report Dictated By: Eugenia Pabon MD at 08/27/2018 11:15 AM Report E-Signed By: Eugenia Pabon MD at 08/27/2018 11:17 AM WSN:[email or web address]
[2018-08-27] MEDS ORDERED: NS(*) 0.9% 1000 ML BAG 1,000 ML IV PRN (11:40)
--- NOTE | 2018-08-27 11:44 | EKG ---
FACILITY: [facility] PATIENT NAME: CHARLOTTE ZHAO : [id number] MR: [id number] V: [id number] EXAM DATE: ORDERING PHYSICIAN: HERNAN ORTEGA TECHNOLOGIST: Test Reason : Blood Pressure : / mmHG Vent. Rate : 097 BPM Atrial Rate : 097 BPM P-R Int : 184 ms QRS Dur : 100 ms QT Int : 360 ms P-R-T Axes : 058 083 053 degrees QTc Int : 457 ms Normal sinus rhythm Normal ECG When compared with ECG of 27-AUG-2018 10:00, Sinus rhythm has replaced Atrial fibrillation Vent. rate has decreased BY 57 BPM Confirmed by Bakari Pan ([id number]) on 08/27/2018 10:54:37 PM Referred By: Confirmed By:Bakari Pinto
--- NOTE | 2018-08-27 11:44 | EKG ---
FACILITY: [facility] [place] PATIENT NAME: CHARLOTTE ZHAO : [id number] MR: [id number] V: [id number] EXAM DATE: ORDERING PHYSICIAN: HERNAN ORTEGA TECHNOLOGIST: RADHA Test Reason : HIGH HR Blood Pressure : / mmHG Vent. Rate : 154 BPM Atrial Rate : 096 BPM P-R Int : 000 ms QRS Dur : 092 ms QT Int : 302 ms P-R-T Axes : 000 091 026 degrees QTc Int : 483 ms Atrial fibrillation with rapid ventricular response Rightward axis Abnormal ECG When compared with ECG of 06.30.2018 Sinus rythym has been replaced by atrial fibrillation Confirmed by Bakari Pan ([id number] on 08/27/2018 10:54:20 PM Referred By: SHANNON Confirmed By:Bakari Pinto
[2018-08-27] MEDS ORDERED: PIPERACILLIN/TAZO SOD* 2.25 GM 2.25 GM in NS(*) 0.9% 100 ML ADDVANT BAG 100 ML IVPB ONE (11:45)
[2018-08-27] MEDS ORDERED: TAZO IVPB ONE (11:45)
[2018-08-27] MEDS ORDERED: NS 0.9% IVPB ONE (11:45)
[2018-08-27] MEDS ORDERED: [UNRECOGNIZED DRUG - MIXTURE] IVPB ONE (11:45)
[2018-08-27] MEDS ORDERED: PIPERACILLIN IVPB ONE (11:45)
[2018-08-27] MEDS ORDERED: LEVOPHED KIT (*) 1 IVSOL 1 KIT IV ONE (12:16)
[2018-08-27] MEDS ORDERED: NOREPINEPH BITAR 4 MG/4 ML AMP IV ONE (12:23)
[2018-08-27] MEDS ORDERED: NOREPINE BITAR* 4 MG/4 ML AMP 4 MG in D5W(*) 250 ML BAG 246 ML IV PRN (12:30)
[2018-08-27] MEDS ORDERED: LIDOCAINE 2% 200MG/10ML UROJET ONE (12:43)
--- NOTE | 2018-08-27 13:00 | RADIOLOGY IMAGING REPORT ---
FACILITY: [facility] [place] PATIENT NAME: Edison Marquez : 1955 MR: [id number] V: [id number] EXAM DATE: ORDERING PHYSICIAN: HERNAN ORTEGA TECHNOLOGIST: [facility] Patient: Edison Marquez : 1955 Visit/Account:[id number] Date of Sevice: 08/27/2018 CHEST/AB/PELV W/OUT CONTRAST HISTORY: renal failure, jaundice, diarrhea, Tbili 14 ADDITIONAL HISTORY: None. TECHNIQUE: Contiguous axial images acquired through the chest abdomen and pelvis without IV contrast. Coronal and sagittal reformatting was also performed. One of the following dose optimization techn iques was utilized in the performance of this exam: Automated exposure control; adjustment of the mA and/or kV according to the patient's size; or use of an iterative reconstruction technique. Specifi c details can be referenced in the facility's radiology CT exam operational policy. COMPARISON: CT abdomen pelvis 06/30/2018 FINDINGS: CHEST: Lungs/Pleura: Mild bibasilar atelectasis noted. Mediastinum/lymph nodes: Negative. Heart/vessels: Moderate calcific plaque noted in the LAD. Heart upper normal limits in size. 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 No bone l esions seen. ABDOMEN AND PELVIS: Hepatobiliary: There are small multifocal low density lesions seen in the right liver and an area of parenchymal aeration in the right lobe which measures 5.9 x 3.4 cm diameter. These have all develope d since the previous exam. Gallbladder normal. Spleen: Negative. Pancreas: Negative. Adrenals: Negative. Kidneys ureters and bladder : Mild perinephric fat stranding is symmetric and unchanged and likely a chronic senescent finding. No evidence of cyst ureteral nephrolithiasis. Urinary bladder is decompres sed but appears grossly normal. Genitalia: Remote prostatectomy GI: There is a sigmoid diverticulosis without definite evidence of inflammation small bowel unremar kable. Vessels/spaces/nodes: Negative. Bones/soft tissues: L5-S1 disc space narrowing with reactive anterior endplate hypertrophic changes compatible with disc disease. Additional findings: There is a moderate-sized fat filled left inguinal hernia. IMPRESSION: Interval development of numerous microabscesses involving the right liver lobe with gas producing org anism and a focal air collection in the right lobe. Colonic diverticulosis without evidence of inflammation. Fat filled left inguinal hernia Remote prostatectomy. Additional benign findings per above. Results were called to HERNAN ORETGA at 08/27/2018 12:41 PM. Report Dictated By: Mookie Rose MD at 08/27/2018 12:41 PM Report E-Signed By: Mookie Rose MD at 08/27/2018 12:57 PM WSN:[id number]
[2018-08-27] MEDS ORDERED: NS(*) 0.9% 1000 ML BAG 1,000 ML IV ONE (13:45)
[2018-08-27] MEDS ORDERED: metroNIDAZOLE* 500MG/100ML BAG 100 ML IVPB ONE (14:50)
--- NOTE | 2018-08-27 15:00 | RADIOLOGY IMAGING REPORT ---
FACILITY: [facility] PATIENT NAME: Edison Marquez : 1955 MR: [id number] V: [id number] EXAM DATE: ORDERING PHYSICIAN: HERNAN ORTEGA TECHNOLOGIST: Location: [facility] [place] Patient: Edison Marquez : 1955 Visit/Account:[id number] Date of Sevice: 08/27/2018 CHEST SINGLE AP Indication: Check Central Line Placement Comparison: Chest x-ray 08/27/2018. Findings: Lungs: There is a new right internal jugular central venous catheter with its tip in the high right a trium in good position. There is no evidence of pneumothorax. Right lung is clear. Mild dependent atelectasis left lung base is seen. Mediastinum/pulmonary vasculature: Heart size and pulmonary vasculature are normal. Bones/soft tissues: There are postoperative changes with fixation plate and the left clavicle. IMPRESSION: New right internal jugular central venous catheter in good position. Report Dictated By: Oleg Pichardo at 08/27/2018 2:53 PM Report E-Signed By: Oleg Pichardo at 08/27/2018 2:54 PM WSN:[email or web address]
[2018-08-27] MEDS ORDERED: INSU HUM REG 100 U/ML(ER ONLY) 10 ML VIAL IV ONE (15:15)
[2018-08-27] MEDS ORDERED: DEXTROSE 50% 50 ML SYR IVP ONE (15:15)
[2018-08-27] MEDS ORDERED: SUCCINYLCHOL CHL 200MG/10ML VL IVP ONE (16:20)
[2018-08-27 16:22] VITALS: BP 127/69
--- NOTE | 2018-08-27 16:57 | RADIOLOGY IMAGING REPORT ---
FACILITY: [facility] PATIENT NAME: Edison Marquez : 1955 MR: [id number] V: [id number] EXAM DATE: ORDERING PHYSICIAN: HERNAN ORTEGA TECHNOLOGIST: Location: [facility] Patient: Edison Marquez : 1955 Visit/Account:[id number] Date of Sevice: 08/27/2018 CHEST SINGLE AP Indication: ET TUBE PLACEMENT Comparison: Chest x-ray 08/27/2018. Findings: Tubes and lines: Right internal jugular central venous catheter, endotracheal tube are in good positi on. Lungs: Generalized low lung volumes are seen. Prominent interstitial markings are new. There is no focal airspace opacity. Mediastinum/pulmonary vasculature: Heart size is at the upper limits of normal. Bones/soft tissues: There are surgical changes with a left clavicle fixation plate. IMPRESSION: 1. New endotracheal tube with its tip in good position in the mid trachea. 2. Generalized low lung volumes, with atelectasis identified. Report Dictated By: Oleg Pichardo at 08/27/2018 4:50 PM Report E-Signed By: Oleg Pichardo at 08/27/2018 4:51 PM WSN:[id number]
== END 2018-08-27 17:14 ==
LOC: ER 10:22
DX: A41.9 Sepsis, unspecified organism (principal); N19 Unspecified kidney failure; K75.0 Abscess of liver; R17 Unspecified jaundice; J96.90 Respiratory failure, unspecified, unspecified whether with hypoxia or hypercapnia; R14.0 Abdominal distension (gaseous)
CPT/HCPCS: 31500; 36415; 36416; 36556; 36600; 71045; 71250; 74176; 81001; 82803; 82948; 83605; 83690; 84484; 85025; 85610; 85730; 87040; 87077; 87088; 87186; 93005; 94660; 96365; 96366; 96367; 96368; 96375; 99291; 99292; C1758; J0330; J1815; J2543; J2704; J3370; J3490; J7030; J7050; J7060; 82040; 82247; 82310; 82374; 82435; 82565; 82947; 84075; 84132; 84155; 84295; 84450; 84460; 84520

== ENCOUNTER → 2018-08-27 | Outpatient (REF) ==
[~2018-08-27] MED LIST changes: +GLIM2TAB43 PO; +LISI-374 PO; +METF-452 PO; +MONT10TA PO; +PANT40TA65 PO; +PRAV20TA65 PO; +RANI-366 PO
== END ==
LOC: AMB 15:43
PROVIDERS: ATTEND Nurse Practitioner
DX: Z02.9 Encounter for administrative examinations, unspecified (principal)

== ENCOUNTER 2018-09-21 11:40 | Emergency (ER) | payer BC, MEDICARE ==
--- NOTE | 2018-09-21 11:42 | ER Report ---
History and Physical Time Seen By MD: 11:42 HPI/ROS CHIEF COMPLAINT: Incision site drainage during flushes HISTORY OF PRESENT ILLNESS: Patient is a 63-year-old male here with complaints of incision site drainage of saline 1 Flushing starting 2 days prior. Patient has a drain in place that was originally placed at the site of the liver abscess which caused the patient to go into septic shock requiring transfer to [facility]. Patient reports that his clinical status is improving, and kidney function is been improving, patient is eating and drinking without issue denies fevers, chills, chest pain, shortness breath, abdominal pain, nausea, vomiting, blood in the stools or urine. REVIEW OF SYSTEMS: Constitutional: No fever, no chills. Eyes: No discharge. ENT: No sore throat. Cardiovascular: No chest pain, no palpitations. Respiratory: No cough, no shortness of breath. Gastrointestinal: No abdominal pain, no vomiting. Genitourinary: No hematuria. Musculoskeletal: No back pain. Skin: Drainage from incision site Neurological: No headache. Allergies: Uncoded Allergies: DOGS (Allergy, Mild, SINUS DRAINAGE, 12/18/07) DUST (Allergy, Mild, SINUS INFECTION, 12/18/07) FEATHERS (Allergy, Mild, SINUS DRAINAGE, 12/18/07) Home Meds Reported Medications Ranitidine Hcl (ZANTAC) 150 Mg Tablet, 150 MG PO BID, TAB 06/30/18 Pravastatin Sodium (PRAVACHOL) 20 Mg Tablet, 20 MG PO QDAY, TAB 06/30/18 Pantoprazole Sodium (PANTOPRAZOLE SODIUM) 40 Mg Tablet.dr, 40 MG PO QDAY, TAB.SR 06/30/18 Glimepiride (GLIMEPIRIDE) 2 Mg Tablet, 2 MG PO QDAY 06/30/18 Montelukast Sodium (SINGULAIR) 10 Mg Tablet, 1 TAB PO QDAY, TAB 06/30/18 Lisinopril (LISINOPRIL) 40 Mg Tablet, 40 MG PO QDAY, TAB 06/30/18 Metformin Hcl (METFORMIN HCL) 1,000 Mg Tablet, 1 TAB PO BID, TAB 06/30/18 Ibuprofen (Motrin) 800 Mg Tab, 0 PO Q8H, #30 0 Refills ONE TABLET BY MOUTH EVERY EIGHT HOURS NEEDED FOR PAIN 12/18/07 Multivitamins W-Minerals (Multivitamin) 1 Cap Capsule, 1 CAP PO DAILY 12/18/07 Niacin (Niacin) 100 Mg Tablet, 100 MG PO BID 12/18/07 Glucosamine Sulfate (Glucosamine) 500 Mg Capsule, 500 MG PO 12/18/07 Hx Smoking: No Smoking Status: Never Smoker Exposure to Second Hand Smoke?: No Hx Substance Use Disorder: No Hx Alcohol Use: Yes Constitutional Vital Sign - Last 24 Hours 09/21/18 09/21/18 09/21/18 09/21/18 11:40 11:42 11:48 11:55 Temp 97.8 Pulse ??? 80 71 Resp 16 B/P (MAP) 120/68 130/80 (97) Pulse Ox 90 92 O2 Delivery Room Air 09/21/18 09/21/18 09/21/18 09/21/18 12:00 12:10 12:25 12:30 Pulse 71 69 B/P (MAP) 120/68 (85) 126/71 (89) Pulse Ox 90 95 09/21/18 09/21/18 09/21/18 09/21/18 12:40 12:45 13:15 13:30 Pulse 70 67 70 B/P (MAP) 136/82 (100) Pulse Ox 93 94 94 93 09/21/18 09/21/18 09/21/18 09/21/18 13:50 14:00 14:05 14:10 Pulse 73 72 73 B/P (MAP) 130/72 (91) Pulse Ox 93 93 93 09/21/18 09/21/18 14:30 14:35 B/P (MAP) 146/76 (99) 145/66 (92) Physical Exam General Appearance: The patient is alert, has no immediate need for airway protection and no signs of toxicity. No acute distress Eyes: Pupils equal and round no pallor or injection. ENT, Mouth: Mucous membranes are moist. Respiratory: There are no retractions, lungs are clear to auscultation. Cardiovascular: Regular rate and rhythm. Gastrointestinal: Abdomen is soft and non tender, no masses, bowel sounds normal. Neurological: No focal neurological deficits Skin: Warm and dry, no rashes, incision site is well-appearing with no erythema, fluctuance or purulent drainage. Musculoskeletal: Neck is supple non tender. Extremities are nontender, nonswollen and have full range of motion. DIFFERENTIAL DIAGNOSIS: After history and physical exam differential diagnosis w as considered for drain blockage, infection, abscess, stricture Medical Decision Making Data Points Result Diagram: 09/21/18 1228 09/21/18 1228 Laboratory Hematology Test 09/21/18 12:28 09/21/18 12:31 Red Blood Count 3.63 M/uL (4.00-5.60) Mean Corpuscular Volume 93.9 fL (80.0-96.0) Mean Corpuscular Hemoglobin 32.1 pg (26.0-33.0) Mean Corpuscular Hemoglobin Concent 34.2 g/dL (32.0-36.0) Red Cell Distribution Width 14.8 % (11.5-14.5) Mean Platelet Volume 8.9 fL (7.2-11.1) Neutrophils (%) (Auto) 63.2 % (39.4-72.5) Lymphocytes (%) (Auto) 23.1 % (17.6-49.6) Monocytes (%) (Auto) 10.6 % (4.1-12.4) Eosinophils (%) (Auto) 2.1 % (0.4-6.7) Basophils (%) (Auto) 1.0 % (0.3-1.4) Nucleated RBC Relative Count (auto) 0.0 /100WBC Neutrophils # (Auto) 5.2 K/uL (2.0-7.4) Lymphocytes # (Auto) 1.9 K/uL (1.3-3.6) Monocytes # (Auto) 0.9 K/uL (0.3-1.0) Eosinophils # (Auto) 0.2 K/uL (0.0-0.5) Basophils # (Auto) 0.1 K/uL (0.0-0.1) Nucleated RBC Absolute Count (auto) 0.00 K/uL Sodium Level 137 mmol/L (137-145) Potassium Level 4.6 mmol/L (3.5-5.0) Chloride Level 108 mmol/L (98-107) Carbon Dioxide Level 22 mmol/L (22-30) Blood Urea Nitrogen 37 mg/dl (9-21) Creatinine 2.60 mg/dl (0.66-1.25) Glomerular Filtration Rate Calc 24.9 Random Glucose 134 mg/dl (75-110) Lactate 1.1 mmol/L (0.7-2.1) Calcium Level 8.8 mg/dl (8.4-10.2) Total Bilirubin 0.8 mg/dl (0.2-1.3) Aspartate Amino Transf (AST/SGOT) 14 U/L (0-35) Alanine Aminotransferase (ALT/SGPT) 14 U/L (0-56) Alkaline Phosphatase 121 U/L (0-126) Total Protein 6.6 g/dl (6.3-8.2) Albumin 3.0 g/dl (3.5-5.0) Lipase 687 U/L (23-300) Urine Color Yellow Urine Clarity Clear Urine pH 5.0 pH (4.8-9.5) Urine Specific [place] 1.013 Urine Protein Negative mg/dL (NEGATIVE) Urine Glucose (UA) Negative mg/dL (NEGATIVE) Urine Ketones Negative mg/dL (NEGATIVE) Urine Blood Negative (NEGATIVE) Urine Nitrite Negative (NEGATIVE) Urine Bilirubin Negative (NEGATIVE) Urine Urobilinogen Negative mg/dL (0.2-1.9) Urine Leukocyte Esterase Small (NEGATIVE) Urine RBC <1 /HPF (0-2/HPF) Urine WBC 2 /HPF (0-5/HPF) Urine Squamous Epithelial Cells Few /LPF (</=FEW) Urine Bacteria Negative /HPF (NONE-FEW) Urine Mucus None /HPF (NONE-FEW) Chemistry Test 09/21/18 12:28 09/21/18 12:31 White Blood Count 8.3 k/uL (4.5-11.0) Red Blood Count 3.63 M/uL (4.00-5.60) Hemoglobin 11.6 g/dL (14.0-18.0) Hematocrit 34.1 % (42.0-52.0) Mean Corpuscular Volume 93.9 fL (80.0-96.0) Mean Corpuscular Hemoglobin 32.1 pg (26.0-33.0) Mean Corpuscular Hemoglobin Concent 34.2 g/dL (32.0-36.0) Red Cell Distribution Width 14.8 % (11.5-14.5) Platelet Count 299 K/uL (150-450) Mean Platelet Volume 8.9 fL (7.2-11.1) Neutrophils (%) (Auto) 63.2 % (39.4-72.5) Lymphocytes (%) (Auto) 23.1 % (17.6-49.6) Monocytes (%) (Auto) 10.6 % (4.1-12.4) Eosinophils (%) (Auto) 2.1 % (0.4-6.7) Basophils (%) (Auto) 1.0 % (0.3-1.4) Nucleated RBC Relative Count (auto) 0.0 /100WBC Neutrophils # (Auto) 5.2 K/uL (2.0-7.4) Lymphocytes # (Auto) 1.9 K/uL (1.3-3.6) Monocytes # (Auto) 0.9 K/uL (0.3-1.0) Eosinophils # (Auto) 0.2 K/uL (0.0-0.5) Basophils # (Auto) 0.1 K/uL (0.0-0.1) Nucleated RBC Absolute Count (auto) 0.00 K/uL Glomerular Filtration Rate Calc 24.9 Lactate 1.1 mmol/L (0.7-2.1) Calcium Level 8.8 mg/dl (8.4-10.2) Total Bilirubin 0.8 mg/dl (0.2-1.3) Aspartate Amino Transf (AST/SGOT) 14 U/L (0-35) Alanine Aminotransferase (ALT/SGPT) 14 U/L (0-56) Alkaline Phosphatase 121 U/L (0-126) Total Protein 6.6 g/dl (6.3-8.2) Albumin 3.0 g/dl (3.5-5.0) Lipase 687 U/L (23-300) Urine Color Yellow Urine Clarity Clear Urine pH 5.0 pH (4.8-9.5) Urine Specific [place] 1.013 Urine Protein Negative mg/dL (NEGATIVE) Urine Glucose (UA) Negative mg/dL (NEGATIVE) Urine Ketones Negative mg/dL (NEGATIVE) Urine Blood Negative (NEGATIVE) Urine Nitrite Negative (NEGATIVE) Urine Bilirubin Negative (NEGATIVE) Urine Urobilinogen Negative mg/dL (0.2-1.9) Urine Leukocyte Esterase Small (NEGATIVE) Urine RBC <1 /HPF (0-2/HPF) Urine WBC 2 /HPF (0-5/HPF) Urine Squamous Epithelial Cells Few /LPF (</=FEW) Urine Bacteria Negative /HPF (NONE-FEW) Urine Mucus None /HPF (NONE-FEW) Urinalysis Test 09/21/18 12:31 Urine Color Yellow Urine Clarity Clear Urine pH 5.0 pH (4.8-9.5) Urine Specific [place] 1.013 Urine Protein Negative mg/dL (NEGATIVE) Urine Glucose (UA) Negative mg/dL (NEGATIVE) Urine Ketones Negative mg/dL (NEGATIVE) Urine Blood Negative (NEGATIVE) Urine Nitrite Negative (NEGATIVE) Urine Bilirubin Negative (NEGATIVE) Urine Urobilinogen Negative mg/dL (0.2-1.9) Urine Leukocyte Esterase Small (NEGATIVE) Urine RBC <1 /HPF (0-2/HPF) Urine WBC 2 /HPF (0-5/HPF) Urine Squamous Epithelial Cells Few /LPF (</=FEW) Urine Bacteria Negative /HPF (NONE-FEW) Urine Mucus None /HPF (NONE-FEW) EKG/Imaging Imaging CT ABDOMEN PELVIS W/O CON COMPARISON: CT abdomen pelvis without contrast 08/27/2018 HISTORY: prior liver abscess, r/o abscess. TECHNIQUE: Axial CT abdomen without intravenous contrast. Coronal and sagittal reformats. One of the following dose optimization techniques was utilized in the performance of this exam: automated exposure control; adjustment of the mA and/or kV according to patient size; or use of iterative reconstruction technique. Specific details can be referenced in the facility's radiology CT exam operational policy. CONTRAST: None FINDINGS: Lack of IV contrast limits assessment of the liver and other solid organs for subtle pathology. Within these limitations, the following observations are made: LUNG BASES: Moderate left, mild right coronary artery calcifications. Mild dependent atelectasis as expected. LIVER: Low-density gas fluid collection in the right lobe of the liver containing a drainage catheter, currently about 3.3 x 6.9 cm on series 2 image 52, previously about 4.2 x 7.2 cm with remeasurement. Cranial and medial to the gas-containing collection there are additional low density lobulated foci probably representing additional, nearby microabscess, no significant interval change, poorly visualized by noncontrast CT today and previously, and possibly communicating with the gas-containing collection. Largest measurable component is about 3.2 x 4.0 cm on series 2 image 30. No new liver lesions/collections are seen. BILIARY: Negative. SPLEEN: Negative. PANCREAS: Negative. ADRENALS: Negative. KIDNEYS: Negative. GI/MESENTERY: Mild sigmoid diverticulosis. No bowel wall thickening, mass or obstruction. No mesenteric fluid collections.. VASCULAR: Mild vascular calcifications. LYMPH NODES: Negative. BLADDER: Negative. PELVIC ORGANS: Negative. BONES: Moderate thoracic and lumbar spine, mild bilateral hip joint degenerative changes. Bulky bridging ossifications in the lower thoracic spine, bulky osteophytes at the lumbosacral junction. OTHER: Negative. IMPRESSION: 1. Cluster of multiple contiguous right lobe liver lesions consistent with liver abscesses, poorly visualized by noncontrast technique but considered overall stable from 08/27/2018. The dominant collection or component contains gas and a drainage catheter. No new liver abscess identified. 2. No new mesenteric abscess identified. 3. No acute bowel pathology. ED Course/Re-evaluation ED Course Patient is a 63-year-old male here with complaints of difficulty flushing his liver abscess drained. Patient reportedly came in with a liver abscess in August and was found to be in septic shock was intubated, sent to [facility]. Patient is currently being treated via a PICC line with ceftriaxone, Flagyl. Patient denies fevers, chills or abdominal pain, nausea, vomiting, he is tolerating by mouth intake without issues. Labs are unremarkable, white blood cell count was normal, lactate was negative. Patient's creatinine was stable at 2.6. CT imaging was completed noncontrast due to renal dysfunction. CT imaging was stable. I discussed the patient with Dr. Mcleod who recommended the patient following up on Sunday with interventional radiology to have the drain adjusted. CT imaging was made available to [facility] encased patient proceeded there in the interim. Patient is hemodynamically stable, in no acute distress at time of discharge. Return precautions provided. Decision to Disposition Date: Sep 21, 2018 Decision to Disposition Time: 14:29 Depart Departure Latest Vital Signs Vital Signs Date Time Temp Pulse Resp B/P (MAP) Pulse Ox O2 Delivery O2 Flow Rate FiO2 09/21/18 14:35 145/66 (92) 09/21/18 14:10 73 93 09/21/18 11:42 97.8 16 Room Air Impression: Primary Impression: Visit for wound check Condition: Improved Disposition: HOME OR SELF-CARE Referrals: ARIANA LARRY MD (PCP) Patient Instructions: Abscess (GEN) Additional Instructions: Please continue your medications as prescribed. Please follow-up on Sunday with interventional radiology to discuss possible replacement of the drainage tube. Please return immediately if you develop fevers, abdominal pain, redness around the site, worsening pain. CT imaging obtained today has been made available to [facility]. EVAN IVY DO Sep 21, 2018 11:42
[2018-09-21 12:38] LABS: PLATELET COUNT, AUTOMATED 299 K/uL (150-450)
--- NOTE | 2018-09-21 13:52 | RADIOLOGY IMAGING REPORT ---
FACILITY: PATIENT NAME: Edison Marquez : 1955 MR: [id number] V: [id number] EXAM DATE: ORDERING PHYSICIAN: EVAN IVY TECHNOLOGIST: Location: [facility] [place] Patient: Edison Marquez : 1955 Visit/Account:[id number] Date of Sevice: 09/21/2018 CT ABDOMEN PELVIS W/O CON COMPARISON: CT abdomen pelvis without contrast 08/27/2018 HISTORY: prior liver abscess, r/o abscess. TECHNIQUE: Axial CT abdomen without intravenous contrast. Coronal and sagittal reformats. One of th e following dose optimization techniques was utilized in the performance of this exam: automated exp osure control; adjustment of the mA and/or kV according to patient size; or use of iterative reconstr uction technique. Specific details can be referenced in the facility's radiology CT exam operational policy. CONTRAST: None FINDINGS: Lack of IV contrast limits assessment of the liver and other solid organs for subtle pathology. Withi n these limitations, the following observations are made: LUNG BASES: Moderate left, mild right coronary artery calcifications. Mild dependent atelectasis as expected. LIVER: Low-density gas fluid collection in the right lobe of the liver containing a drainage cathete r, currently about 3.3 x 6.9 cm on series 2 image 52, previously about 4.2 x 7.2 cm with remeasuremen t. Cranial and medial to the gas-containing collection there are additional low density lobulated foc i probably representing additional, nearby microabscess, no significant interval change, poorly visua lized by noncontrast CT today and previously, and possibly communicating with the gas-containing carlos ection. Largest measurable component is about 3.2 x 4.0 cm on series 2 image 30. No new liver lesions /collections are seen. BILIARY: Negative. SPLEEN: Negative. PANCREAS: Negative. ADRENALS: Negative. KIDNEYS: Negative. GI/MESENTERY: Mild sigmoid diverticulosis. No bowel wall thickening, mass or obstruction. No mesente emma fluid collections.. VASCULAR: Mild vascular calcifications. LYMPH NODES: Negative. BLADDER: Negative. PELVIC ORGANS: Negative. BONES: Moderate thoracic and lumbar spine, mild bilateral hip joint degenerative changes. Bulky brid ging ossifications in the lower thoracic spine, bulky osteophytes at the lumbosacral junction. OTHER: Negative. IMPRESSION: 1. Cluster of multiple contiguous right lobe liver lesions consistent with liver abscesses, poorly v isualized by noncontrast technique but considered overall stable from 08/27/2018. The dominant collec tion or component contains gas and a drainage catheter. No new liver abscess identified. 2. No new mesenteric abscess identified. 3. No acute bowel pathology. Report Dictated By: Aden Leung at 09/21/2018 1:38 PM Report E-Signed By: Aden Leung at 09/21/2018 1:47 PM WSN:[id number]
[2018-09-21 14:35] VITALS: BP 145/66
== END 2018-09-21 14:44 | disposition home or self-care (01) ==
LOC: ER 11:44
DX: T85.898A Other specified complication of other internal prosthetic devices, implants and grafts, initial encounter (principal)
CPT/HCPCS: 74176; 81001; 82040; 82247; 82310; 82374; 82435; 82565; 82947; 83605; 83690; 84075; 84132; 84155; 84295; 84450; 84460; 84520; 85025; 99284

== ENCOUNTER → 2018-10-15 | Outpatient (CLI) | payer BC, MEDICARE ==
[2018-10-15 11:56] LABS: INR 2.02
== END ==
LOC: LAB 11:20
PROVIDERS: ATTEND Internal Medicine Cardiovascular Disease
DX: I48.1 Persistent atrial fibrillation (principal)
CPT/HCPCS: 36415; 85610

== ENCOUNTER → 2018-10-24 | Outpatient (CLI) | payer BC, MEDICARE ==
[2018-10-24 11:59] LABS: INR 2.2
== END ==
LOC: LAB 10:49
PROVIDERS: ATTEND Internal Medicine Cardiovascular Disease
DX: I48.1 Persistent atrial fibrillation (principal)
CPT/HCPCS: 85610

== ENCOUNTER → 2018-10-24 | Outpatient (CLI) | payer BC, MEDICARE | LOC: LAB 10:52 | PROVIDERS: ATTEND Internal Medicine Infectious Disease | DX: K75.0 Abscess of liver (principal) | CPT/HCPCS: 36415; 86140 ==

== ENCOUNTER → 2018-10-24 | Outpatient (CLI) | payer BC, MEDICARE ==
[2018-10-24 11:25] LABS: PLATELET COUNT, AUTOMATED 321 K/uL (150-450)
== END ==
LOC: LAB 10:54
PROVIDERS: ATTEND Internal Medicine Nephrology
DX: N17.0 Acute kidney failure with tubular necrosis (principal)
CPT/HCPCS: 81001; 82040; 82310; 82374; 82435; 82565; 82570; 82947; 84100; 84132; 84156; 84295; 84520; 85025

== ENCOUNTER 2018-10-27 00:46 | Emergency (ER) | payer BC, MEDICARE ==
--- NOTE | 2018-10-27 01:04 | ER Report ---
History and Physical Time Seen By MD: 01:04 Hx. of Stated Complaint: lower abdominal pain starting yesterday. HPI/ROS CHIEF COMPLAINT: Abdominal pain and bloating HISTORY OF PRESENT ILLNESS: This is a 63-year-old male. He is having abdominal pain with some abdominal bloating. He did have a normal bowel movement a couple of hours ago. Passing gas. Having nausea but no vomiting. Abdomen is tender throughout. He is concerned about the possibility of bowel obstruction or sepsis. He has had prior problems with this in the past. Denies any fevers or chills. No chest pain, shortness of breath. Allergies: Uncoded Allergies: DOGS (Allergy, Mild, SINUS DRAINAGE, 12/18/07) DUST (Allergy, Mild, SINUS INFECTION, 12/18/07) FEATHERS (Allergy, Mild, SINUS DRAINAGE, 12/18/07) Home Meds Active Scripts Ondansetron 4 Mg Odt (ONDANSETRON 4 MG ODT) 4 Mg Tab.rapdis, 4 MG PO Q6H PRN for NAUSEA/VOMITING, #20 TAB 0 Refills Prov:CHET RUTH MD 10/27/18 Oxycodone Hcl/Acetaminophen (PERCOCET 5-325 MG TABLET) 1 Each Tablet, 1 EACH PO Q4H PRN for PAIN, #20 TAB 0 Refills Prov:CHET RUTH MD 10/27/18 Reported Medications Warfarin Sodium (WARFARIN SODIUM) 5 Mg Tablet, 5 MG PO QDAY, TAB 10/27/18 Albuterol Sulfate (VENTOLIN HFA) 18 Gm Inh, 1-2 PUFF INH 3-4XD, INH 10/27/18 Metronidazole (FLAGYL) 500 Mg Tablet, 500 MG PO TID, TAB 10/27/18 Metoprolol Tartrate (METOPROLOL TARTRATE) 25 Mg Tablet, 3 TAB PO BID, TAB 10/27/18 Fenofibrate,Micronized (TRICOR) 145 Mg Tab, 67 MG PO QDAY, #10 TAB 10/27/18 Cetirizine Hcl (ZYRTEC) 10 Mg Capsule, 5 MG PO QDAY, CAPSULE 10/27/18 Pantoprazole Sodium (PANTOPRAZOLE SODIUM) 40 Mg Tablet.dr, 40 MG PO QDAY, TAB.SR 06/30/18 Montelukast Sodium (SINGULAIR) 10 Mg Tablet, 1 TAB PO QDAY, TAB 10/21/18 Multivitamins W-Minerals (Multivitamin) 1 Cap Capsule, 1 CAP PO DAILY 12/18/07 Niacin (Niacin) 100 Mg Tablet, 100 MG PO BID 12/18/07 Glucosamine Sulfate (Glucosamine) 500 Mg Capsule, 500 MG PO 12/18/07 Discontinued Reported Medications Ranitidine Hcl (ZANTAC) 150 Mg Tablet, 150 MG PO BID, TAB 06/30/18 Pravastatin Sodium (PRAVACHOL) 20 Mg Tablet, 20 MG PO QDAY, TAB 06/30/18 Glimepiride (GLIMEPIRIDE) 2 Mg Tablet, 2 MG PO QDAY 06/30/18 Lisinopril (LISINOPRIL) 40 Mg Tablet, 40 MG PO QDAY, TAB 06/30/18 Metformin Hcl (METFORMIN HCL) 1,000 Mg Tablet, 1 TAB PO BID, TAB 06/30/18 Ibuprofen (Motrin) 800 Mg Tab, 0 PO Q8H, #30 0 Refills ONE TABLET BY MOUTH EVERY EIGHT HOURS NEEDED FOR PAIN 12/18/07 Past Medical/Surgical History Diabetes, hyperlipidemia, hypertension, stage IV kidney disease, atrial fib/flutter with ablation scheduled, prostatectomy for prostate cancer. Reviewed Nurses Notes: Yes Hx Smoking: No Smoking Status: Never Smoker Exposure to Second Hand Smoke?: No Hx Substance Use Disorder: No Hx Alcohol Use: Yes Constitutional Vital Sign - Last 24 Hours 10/27/18 10/27/18 10/27/18 10/27/18 00:54 01:00 01:15 01:30 Temp 97.5 Pulse 72 66 63 Resp 16 9 23 B/P (MAP) 177/99 176/93 (120) 168/85 (112) 157/82 (107) Pulse Ox 87 95 94 O2 Delivery Room Air 10/27/18 10/27/18 10/27/18 10/27/18 01:45 02:00 02:15 02:30 Pulse 62 59 Resp 17 11 B/P (MAP) 146/84 (104) 138/86 (103) 149/80 (103) 157/93 (114) Pulse Ox 95 93 10/27/18 10/27/18 10/27/18 10/27/18 02:45 03:00 03:15 03:30 Pulse 65 60 Resp 12 15 B/P (MAP) 153/84 (107) 160/93 (115) 159/88 (111) 157/88 (111) Pulse Ox 95 94 10/27/18 10/27/18 10/27/18 03:45 04:00 04:15 Pulse 64 Resp 21 B/P (MAP) 157/86 (109) 152/80 (104) 157/88 (111) Pulse Ox 95 Physical Exam General Appearance: The patient is alert. No acute distress. Eyes: Pupils are equal, round. No pallor, injection or icterus. ENT: Mucous membranes are moist. Normal oral mucosa. Posterior oropharynx is normal. Neck: Supple and non tender. Respiratory: Lungs are clear to auscultation. Cardiovascular: Regular rate and rhythm. No murmurs, gallops or rubs. Normal capillary refill. No edema. Gastrointestinal: Abdomen is soft, distended, discomfort throughout. No rebound or guarding. Normal active bowel sounds. No costovertebral angle tenderness with percussion. Neurological: Alert and oriented x3. No focal neurologic deficits Skin: Warm and dry. Musculoskeletal: Extremities are nontender. DIFFERENTIAL DIAGNOSIS: After history and physical exam, differential diagnosis was considered for abdominal pain including but not limited to colitis, gastroenteritis, obstruction and urinary tract infection. Medical Decision Making Data Points Result Diagram: 10/27/18 0122 10/27/18 0122 Laboratory Hematology Test 10/27/18 00:50 10/27/18 01:22 Urine Color Yellow Urine Clarity Clear Urine pH 5.0 pH (4.8-9.5) Urine Specific [place] 1.012 Urine Protein 100 mg/dL (NEGATIVE) Urine Glucose (UA) 50 mg/dL (NEGATIVE) Urine Ketones Negative mg/dL (NEGATIVE) Urine Blood Small (NEGATIVE) Urine Nitrite Negative (NEGATIVE) Urine Bilirubin Negative (NEGATIVE) Urine Urobilinogen Negative mg/dL (0.2-1.9) Urine Leukocyte Esterase Trace (NEGATIVE) Urine RBC <1 /HPF (0-2/HPF) Urine WBC <1 /HPF (0-5/HPF) Urine Squamous Epithelial Cells Few /LPF (</=FEW) Urine Transitional Epithelial Cells Few /LPF (NONE-FEW) Urine Bacteria Few /HPF (NONE-FEW) Urine Mucus None /HPF (NONE-FEW) Red Blood Count 4.28 M/uL (4.00-5.60) Mean Corpuscular Volume 94.4 fL (80.0-96.0) Mean Corpuscular Hemoglobin 31.7 pg (26.0-33.0) Mean Corpuscular Hemoglobin Concent 33.6 g/dL (32.0-36.0) Red Cell Distribution Width 15.0 % (11.5-14.5) Mean Platelet Volume 9.6 fL (7.2-11.1) Neutrophils (%) (Auto) 80.9 % (39.4-72.5) Lymphocytes (%) (Auto) 10.7 % (17.6-49.6) Monocytes (%) (Auto) 7.7 % (4.1-12.4) Eosinophils (%) (Auto) 0.3 % (0.4-6.7) Basophils (%) (Auto) 0.4 % (0.3-1.4) Nucleated RBC Relative Count (auto) 0.1 /100WBC Neutrophils # (Auto) 8.1 K/uL (2.0-7.4) Lymphocytes # (Auto) 1.1 K/uL (1.3-3.6) Monocytes # (Auto) 0.8 K/uL (0.3-1.0) Eosinophils # (Auto) 0.0 K/uL (0.0-0.5) Basophils # (Auto) 0.0 K/uL (0.0-0.1) Nucleated RBC Absolute Count (auto) 0.01 K/uL Prothrombin Time 28.8 seconds (12.0-14.4) Prothromb Time International Ratio 2.65 Sodium Level 137 mmol/L (137-145) Potassium Level 3.9 mmol/L (3.5-5.0) Chloride Level 104 mmol/L (98-107) Carbon Dioxide Level 25 mmol/L (22-30) Blood Urea Nitrogen 29 mg/dl (9-21) Creatinine 2.10 mg/dl (0.66-1.25) Glomerular Filtration Rate Calc 31.9 Random Glucose 201 mg/dl (75-110) Calcium Level 8.9 mg/dl (8.4-10.2) Total Bilirubin 1.3 mg/dl (0.2-1.3) Aspartate Amino Transf (AST/SGOT) 75 U/L (0-35) Alanine Aminotransferase (ALT/SGPT) 35 U/L (0-56) Alkaline Phosphatase 111 U/L (0-126) Total Protein 6.2 g/dl (6.3-8.2) Albumin 3.4 g/dl (3.5-5.0) Amylase Level 1578 U/L (0-110) Lipase 72837 U/L (23-300) Chemistry Test 10/27/18 00:50 10/27/18 01:22 Urine Color Yellow Urine Clarity Clear Urine pH 5.0 pH (4.8-9.5) Urine Specific [place] 1.012 Urine Protein 100 mg/dL (NEGATIVE) Urine Glucose (UA) 50 mg/dL (NEGATIVE) Urine Ketones Negative mg/dL (NEGATIVE) Urine Blood Small (NEGATIVE) Urine Nitrite Negative (NEGATIVE) Urine Bilirubin Negative (NEGATIVE) Urine Urobilinogen Negative mg/dL (0.2-1.9) Urine Leukocyte Esterase Trace (NEGATIVE) Urine RBC <1 /HPF (0-2/HPF) Urine WBC <1 /HPF (0-5/HPF) Urine Squamous Epithelial Cells Few /LPF (</=FEW) Urine Transitional Epithelial Cells Few /LPF (NONE-FEW) Urine Bacteria Few /HPF (NONE-FEW) Urine Mucus None /HPF (NONE-FEW) White Blood Count 10.0 k/uL (4.5-11.0) Red Blood Count 4.28 M/uL (4.00-5.60) Hemoglobin 13.6 g/dL (14.0-18.0) Hematocrit 40.4 % (42.0-52.0) Mean Corpuscular Volume 94.4 fL (80.0-96.0) Mean Corpuscular Hemoglobin 31.7 pg (26.0-33.0) Mean Corpuscular Hemoglobin Concent 33.6 g/dL (32.0-36.0) Red Cell Distribution Width 15.0 % (11.5-14.5) Platelet Count 292 K/uL (150-450) Mean Platelet Volume 9.6 fL (7.2-11.1) Neutrophils (%) (Auto) 80.9 % (39.4-72.5) Lymphocytes (%) (Auto) 10.7 % (17.6-49.6) Monocytes (%) (Auto) 7.7 % (4.1-12.4) Eosinophils (%) (Auto) 0.3 % (0.4-6.7) Basophils (%) (Auto) 0.4 % (0.3-1.4) Nucleated RBC Relative Count (auto) 0.1 /100WBC Neutrophils # (Auto) 8.1 K/uL (2.0-7.4) Lymphocytes # (Auto) 1.1 K/uL (1.3-3.6) Monocytes # (Auto) 0.8 K/uL (0.3-1.0) Eosinophils # (Auto) 0.0 K/uL (0.0-0.5) Basophils # (Auto) 0.0 K/uL (0.0-0.1) Nucleated RBC Absolute Count (auto) 0.01 K/uL Prothrombin Time 28.8 seconds (12.0-14.4) Prothromb Time International Ratio 2.65 Glomerular Filtration Rate Calc 31.9 Calcium Level 8.9 mg/dl (8.4-10.2) Total Bilirubin 1.3 mg/dl (0.2-1.3) Aspartate Amino Transf (AST/SGOT) 75 U/L (0-35) Alanine Aminotransferase (ALT/SGPT) 35 U/L (0-56) Alkaline Phosphatase 111 U/L (0-126) Total Protein 6.2 g/dl (6.3-8.2) Albumin 3.4 g/dl (3.5-5.0) Amylase Level 1578 U/L (0-110) Lipase 03363 U/L (23-300) Coagulation Test 10/27/18 01:22 Prothrombin Time 28.8 seconds Prothromb Time International Ratio 2.65 Urinalysis Test 10/27/18 00:50 Urine Color Yellow Urine Clarity Clear Urine pH 5.0 pH (4.8-9.5) Urine Specific [place] 1.012 Urine Protein 100 mg/dL (NEGATIVE) Urine Glucose (UA) 50 mg/dL (NEGATIVE) Urine Ketones Negative mg/dL (NEGATIVE) Urine Blood Small (NEGATIVE) Urine Nitrite Negative (NEGATIVE) Urine Bilirubin Negative (NEGATIVE) Urine Urobilinogen Negative mg/dL (0.2-1.9) Urine Leukocyte Esterase Trace (NEGATIVE) Urine RBC <1 /HPF (0-2/HPF) Urine WBC <1 /HPF (0-5/HPF) Urine Squamous Epithelial Cells Few /LPF (</=FEW) Urine Transitional Epithelial Cells Few /LPF (NONE-FEW) Urine Bacteria Few /HPF (NONE-FEW) Urine Mucus None /HPF (NONE-FEW) EKG/Imaging Imaging CT of the abdomen and pelvis without contrast: Indication: Abdominal pain and bloating. Technique: Helical CT was performed through the abdomen and pelvis without contrast. Multiplanar reconstructions are reviewed. One of the following dose optimization techniques was utilized in the performance of this exam: Automated exposure control; adjustment of the mA and/or kV according to the patient's size; or use of an iterative reconstruction technique. Specific details can be referenced in the facility's radiology CT exam operational policy. Comparison: 09/21/2018 Lower lung bourne: Small/moderate pleural effusions are now present. There are small areas of atelectatic consolidation in both lower lobes. A small pericardial effusion is present. Liver: The percutaneous drainage catheter in the liver was removed. There is residual hypodensity in the posterior lateral aspect of the right lobe, but significantly smaller than previous. There are no definite signs of recurrent or new liver abscess. The liver is otherwise unchanged. Gallbladder/biliary tree: The gallbladder is normal in size and homogeneous in density. The bile ducts are not dilated. Pancreas: Normal in size, shape, and density. There are no signs of peripancreatic inflammation or fluid. Spleen: Normal in size, shape, and density. A tiny accessory spleen is incidentally noted. Adrenal glands: Within normal limits. Kidneys/urinary bladder: The kidneys appear unremarkable and unchanged. There are no signs of obstruction. The bladder is homogeneous and unremarkable. Intestinal structures: There is chronic diverticulosis in the sigmoid colon. There are no signs of acute diverticulitis. There are no signs of intestinal obstruction. The appendix appears unremarkable. Pelvis: A small uncomplicated left inguinal hernia appears unchanged. Aorta and vascular structures: There is stable mild atherosclerotic calcification in the aorta. There is no evidence of aneurysm. Ascites or fluid collections: None seen. Skeletal structures: There is stable degenerative disc disease and marginal osteophyte formation in the thoracic spine and lumbar spine. No acute skeletal deformity is identified. Impression: No acute process is identified in the abdomen or pelvis. Small/moderate pleural effusions have developed. Report Dictated By: Fede Briggs MD at 10/27/2018 3:41 AM ED Course/Re-evaluation Clinical Indication for ER IV: Hydration, IV Access ED Course Initially refused IV pain medicine but later had some morphine which helped his pain. Labs showed pancreatic enzymes elevated, imaging without any acute abnormalities. Reviewed this with the patient and inserted management with clear liquids initially, pain and nausea medicines Decision to Disposition Date: Oct 27, 2018 Decision to Disposition Time: 04:12 Depart Departure Latest Vital Signs Vital Signs Date Time Temp Pulse Resp B/P (MAP) Pulse Ox O2 Delivery O2 Flow Rate FiO2 10/27/18 04:15 157/88 (111) 10/27/18 04:00 64 21 95 10/27/18 00:54 97.5 Room Air Impression: Primary Impression: Pancreatitis Condition: Improved Disposition: HOME OR SELF-CARE Referrals: ARIANA LARRY MD (PCP) New Scripts Ondansetron 4 Mg Odt (ONDANSETRON 4 MG ODT) 4 Mg Tab.rapdis 4 MG PO Q6H PRN for NAUSEA/VOMITING, #20 TAB 0 Refills Prov: CHET RUTH MD 10/27/18 Oxycodone Hcl/Acetaminophen (PERCOCET 5-325 MG TABLET) 1 Each Tablet 1 EACH PO Q4H PRN for PAIN, #20 TAB 0 Refills Prov: CHET RUTH MD 10/27/18 Patient Instructions: Pancreatitis (ED) Additional Instructions: You have inflammation of the pancreas, called pancreatitis. Stick to a clear liquid diet until pain subsides, then advance to bland foods over the next 24-48 hours. Take Percocet 5/325, one every 4 hours as needed for pain. Take Zofran 4mg, one every 6 hours as needed for nausea. Call your doctor on Sunday to arrange follow-up. You may want to call your continuous pillowcase cutter on Sunday to discuss if they will still do your cardiac ablation procedure or if they will need to postpone it. Return to the ER if needed for worsening pain, uncontrolled nausea/vomiting, or other problems. Problem Qualifiers Primary Impression: Pancreatitis Chronicity: acute Pancreatitis type: unspecified pancreatitis type Acute pancreatitis complication: no infection or necrosis Qualified Codes: K85.90 - Acute pancreatitis without necrosis or infection, unspecified CHET RUTH MD Oct 27, 2018 01:04
[2018-10-27] MEDS ORDERED: FEN145 PO (01:10)
[2018-10-27] MEDS ORDERED: ALB18R INH (01:10)
[2018-10-27] MEDS ORDERED: CETI10CA8 PO (01:10)
[2018-10-27] MEDS ORDERED: WARF5TAB23 PO (01:10)
[2018-10-27] MEDS ORDERED: METR-1 PO (01:10)
[2018-10-27] MEDS ORDERED: METO25TA93 PO (01:10)
[2018-10-27] MEDS ORDERED: MORPHINE 4 MG/ML SDV IVP ONE (01:20)
[2018-10-27] MEDS ORDERED: ONDANSETRON 4 MG/2 ML VIAL IVP ONE (01:20)
[2018-10-27 01:34] LABS: PLATELET COUNT, AUTOMATED 292 K/uL (150-450)
[2018-10-27 01:38] LABS: INR 2.65
--- NOTE | 2018-10-27 03:56 | RADIOLOGY IMAGING REPORT ---
FACILITY: [facility] - [place] PATIENT NAME: Edison Marquez : 1955 MR: [id number] V: [id number] EXAM DATE: ORDERING PHYSICIAN: CHET RUTH TECHNOLOGIST: Location: [facility] Patient: Edison Marquez : 1955 Visit/Account:[id number] Date of Sevice: 10/27/2018 CT of the abdomen and pelvis without contrast: Indication: Abdominal pain and bloating. Technique: Helical CT was performed through the abdomen and pelvis without contrast. Multiplanar rec onstructions are reviewed. One of the following dose optimization techniques was utilized in the performance of this exam: Autom ated exposure control; adjustment of the mA and/or kV according to the patient's size; or use of an i terative reconstruction technique. Specific details can be referenced in the facility's radiology CT exam operational policy. Comparison: 09/21/2018 Lower lung bourne: Small/moderate pleural effusions are now present. There are small areas of atelect atic consolidation in both lower lobes. A small pericardial effusion is present. Liver: The percutaneous drainage catheter in the liver was removed. There is residual hypodensity in the posterior lateral aspect of the right lobe, but significantly smaller than previous. There are no definite signs of recurrent or new liver abscess. The liver is otherwise unchanged. Gallbladder/biliary tree: The gallbladder is normal in size and homogeneous in density. The bile duct s are not dilated. Pancreas: Normal in size, shape, and density. There are no signs of peripancreatic inflammation or fl uid. Spleen: Normal in size, shape, and density. A tiny accessory spleen is incidentally noted. Adrenal glands: Within normal limits. Kidneys/urinary bladder: The kidneys appear unremarkable and unchanged. There are no signs of obstruc tion. The bladder is homogeneous and unremarkable. Intestinal structures: There is chronic diverticulosis in the sigmoid colon. There are no signs of ac alfie diverticulitis. There are no signs of intestinal obstruction. The appendix appears unremarkable. Pelvis: A small uncomplicated left inguinal hernia appears unchanged. Aorta and vascular structures: There is stable mild atherosclerotic calcification in the aorta. There is no evidence of aneurysm. Ascites or fluid collections: None seen. Skeletal structures: There is stable degenerative disc disease and marginal osteophyte formation in t he thoracic spine and lumbar spine. No acute skeletal deformity is identified. Impression: No acute process is identified in the abdomen or pelvis. Small/moderate pleural effusions have developed. Report Dictated By: Fede Briggs MD at 10/27/2018 3:41 AM Report E-Signed By: Fede Briggs MD at 10/27/2018 3:51 AM WSN:[id number]
[2018-10-27] MEDS ORDERED: ONDA4TAB9 PO (04:14)
[2018-10-27] MEDS ORDERED: OXYC-865 PO (04:14)
[2018-10-27 04:15] VITALS: BP 157/88
[2018-10-27] MEDS ORDERED: ONDANSETRON 4 MG ODT TH SL ONE (04:15)
[2018-10-27] MEDS ORDERED: oxyCODONE/ACETAMIN 5/325MG TH 2 TAB/BOTTLE PO ONE (04:15)
== END 2018-10-27 04:43 | disposition home or self-care (01) ==
LOC: ER 00:54
DX: K85.90 Acute pancreatitis without necrosis or infection, unspecified (principal)
CPT/HCPCS: 74176; 81001; 82150; 83690; 85025; 85610; 96374; 96375; 99284; J2270; J2405; S0119; 82040; 82247; 82310; 82374; 82435; 82565; 82947; 84075; 84132; 84155; 84295; 84450; 84460; 84520

== ENCOUNTER → 2018-11-11 | Outpatient (CLI) | payer BC, MEDICARE ==
[~2018-11-11] MED LIST changes: +ALB18R INH; +CETI10CA8 PO; +METO25TA93 PO; +METR-1 PO; +ONDA4TAB9 PO; +OXYC-865 PO; +WARF5TAB23 PO
[2018-11-11 12:18] LABS: PLATELET COUNT, AUTOMATED 327 K/uL (150-450)
== END ==
LOC: LAB 11:48
PROVIDERS: ATTEND Family Medicine
DX: H46.9 Unspecified optic neuritis (principal)
CPT/HCPCS: 36415; 82040; 82247; 82310; 82374; 82435; 82565; 82947; 84075; 84132; 84155; 84295; 84450; 84460; 84520; 85025; 85651; 86140

== ENCOUNTER → 2018-11-11 | Outpatient (CLI) | payer BC, MEDICARE | LOC: US 11-01 03:16 | PROVIDERS: ATTEND Physician Assistant | DX: I31.3 Pericardial effusion (noninflammatory) (principal) | CPT/HCPCS: 93308 ==

== ENCOUNTER → 2018-11-11 | Outpatient (CLI) | payer BC, MEDICARE ==
--- NOTE | 2018-11-11 17:05 | RADIOLOGY IMAGING REPORT ---
FACILITY: [facility] - [place] PATIENT NAME: Edison Marquez : 1955 MR: [id number] V: [id number] EXAM DATE: ORDERING PHYSICIAN: SIDRA BAZAN TECHNOLOGIST: Location: [facility] Patient: Edison Marquez : 1955 Visit/Account:[id number] Date of Sevice: 11/11/2018 EXAMINATION: MRI brain without IV contrast, detailed orbits HISTORY: Papilledema. COMPARISON: None. TECHNIQUE: Multi-planar, multi-sequence brain MRI was performed without IV gadolinium. Thin section imaging was performed in the axial and coronal planes through the orbits. FINDINGS: RIGHT ORBIT Globe: Negative. Optic nerve/intraconal space: Negative. Extra-ocular muscles/extraconal space: Negative. Lacrimal gland: Negative. Subcutaneous tissues: Negative. LEFT ORBIT: Globe: Negative. Optic nerve/intraconal space: Negative. Extra-ocular muscles/extraconal space: Negative. Lacrimal gland: Negative. Subcutaneous tissues: Negative. Rest of brain: Brain volume: Normal. Sagittal midline structures: Normal. Ventricles: Normal. Acute ischemic changes: No diffusion restriction present to suggest acute ischemia. Hemorrhage: No acute hemorrhage or hemosiderin staining. Masses/edema: None. Weber-white: Negative. White matter: A few T2/FLAIR hyperintensities in the deep white matter bilaterally. Vessels: Normal. Extra-axial: Normal. Calvarium/scalp: Negative. Skull base: Negative. Visualized sinuses/orbits: There is patchy mucosal thickening in the paranasal sinuses, worst in the right maxillary and left sphenoid sinus which are nearly completely opacified, with T2 hypointensity centrally. Visualized upper neck: Negative. IMPRESSION: 1. No focal lesion of either orbit or optic nerve. 2. No acute infarct, hemorrhage or intracranial mass lesion. 3. Mild nonspecific white matter disease could be due to chronic small vessel ischemia, chronic migra ine headaches, previous inflammation or trauma. 4. Moderate inflammation of the paranasal sinuses, worst in the right maxillary and left sphenoid sin us. T2 hypointense signal in the right maxillary and left sphenoid sinuses could be due to densely in spissated secretions or noninvasive fungal sinusitis. Report Dictated By: Stephanie Pennington MD at 11/11/2018 4:54 PM Report E-Signed By: Stephanie Pennington MD at 11/11/2018 5:00 PM WSN:[email or web address]
--- NOTE | 2018-11-11 17:05 | RADIOLOGY IMAGING REPORT ---
FACILITY: [facility] PATIENT NAME: Edison Marquez : 1955 MR: [id number] V: [id number] EXAM DATE: ORDERING PHYSICIAN: SIDRA BAZAN TECHNOLOGIST: Location: [facility] - [place], [place] Patient: Edison Marquez : 1955 Visit/Account:[id number] Date of Sevice: 11/11/2018 EXAMINATION: MRI brain without IV contrast, detailed orbits HISTORY: Papilledema. COMPARISON: None. TECHNIQUE: Multi-planar, multi-sequence brain MRI was performed without IV gadolinium. Thin section imaging was performed in the axial and coronal planes through the orbits. FINDINGS: RIGHT ORBIT Globe: Negative. Optic nerve/intraconal space: Negative. Extra-ocular muscles/extraconal space: Negative. Lacrimal gland: Negative. Subcutaneous tissues: Negative. LEFT ORBIT: Globe: Negative. Optic nerve/intraconal space: Negative. Extra-ocular muscles/extraconal space: Negative. Lacrimal gland: Negative. Subcutaneous tissues: Negative. Rest of brain: Brain volume: Normal. Sagittal midline structures: Normal. Ventricles: Normal. Acute ischemic changes: No diffusion restriction present to suggest acute ischemia. Hemorrhage: No acute hemorrhage or hemosiderin staining. Masses/edema: None. Weber-white: Negative. White matter: A few T2/FLAIR hyperintensities in the deep white matter bilaterally. Vessels: Normal. Extra-axial: Normal. Calvarium/scalp: Negative. Skull base: Negative. Visualized sinuses/orbits: There is patchy mucosal thickening in the paranasal sinuses, worst in the right maxillary and left sphenoid sinus which are nearly completely opacified, with T2 hypointensity centrally. Visualized upper neck: Negative. IMPRESSION: 1. No focal lesion of either orbit or optic nerve. 2. No acute infarct, hemorrhage or intracranial mass lesion. 3. Mild nonspecific white matter disease could be due to chronic small vessel ischemia, chronic migra ine headaches, previous inflammation or trauma. 4. Moderate inflammation of the paranasal sinuses, worst in the right maxillary and left sphenoid sin us. T2 hypointense signal in the right maxillary and left sphenoid sinuses could be due to densely in spissated secretions or noninvasive fungal sinusitis. Report Dictated By: Stephanie Pennington MD at 11/11/2018 4:54 PM Report E-Signed By: Stephanie Pennington MD at 11/11/2018 5:00 PM WSN:[email or web address]
== END ==
LOC: MRI 13:47
PROVIDERS: ATTEND Optometrist
DX: H47.10 Unspecified papilledema (principal)
CPT/HCPCS: 70540; 70551

== ENCOUNTER → 2018-12-30 | Outpatient (REF) | payer BC, MEDICARE ==
[~2018-12-30] MED LIST changes: +AMIO200T49 PO
== END ==
LOC: ZZSENDIN 14:21
PROVIDERS: ATTEND Family Medicine
DX: K75.0 Abscess of liver (principal)
CPT/HCPCS: 85651

== ENCOUNTER 2019-01-02 00:03 | Day surgery (SDC) | payer BC, MEDICARE ==
[~2019-01-02] VITALS: Ht 177.8 cm; Wt 91.2 kg
[2019-01-02 06:33] VITALS: BP 120/79
[2019-01-02] MEDS ORDERED: LIDOCAINE/SOD BICARB 8.4% SYR ID ONE (06:45)
[2019-01-02] MEDS ORDERED: NORMOSOL R SOLN(*) 1000 ML BAG 1,000 ML IV PRN (06:45)
[2019-01-02 08:13] VITALS: BP 117/75
[2019-01-02 08:36] VITALS: BP 142/89
[2019-01-02 08:40] VITALS: BP 129/79
[2019-01-02 08:42] VITALS: BP 110/76
--- NOTE | 2019-01-02 09:21 | NUR ---
0813 PT ARRIVED IN [place] VIA CART, L LAT POSITION, RESTING, VSS, DR. LARRY AT BEDSIDE TO DISCUSS FINDINGS WITH 0830 VSS, PT DECLINES FOOD/DRINK AT THIS TIME 0840 PT WOULD LIKE TO GET READY, ORTHOSTATICS DONE, STABLE, PT DENIES DIZZINESS, D/C IV TUBING 0850 IV OUT, PRESSURE DRESSING APPLIED, REASSESSED, UNREMARKABLE CHANGES, D/C INSTRUCTIONS COVERED, ALL QUESTIONS ANSWERED 0900 PT OUT TO CAR OUTSIDE OF ER ENTRANCE VIA WC, ALL BELONGINGS WITH PT, PT SELF TRANSFERRED TO CAR WITHOUT INCIDENT.
[2019-01-02] MEDS ORDERED: PROPOFOL(*)1000 MG/100 ML VIAL 100 ML ONE (12:28)
== END 2019-01-02 09:00 | disposition home or self-care (01) ==
LOC: OR 00:03
PROVIDERS: ATTEND Family Medicine
DX: K75.0 Abscess of liver (principal); D12.3 Benign neoplasm of transverse colon; K57.30 Diverticulosis of large intestine without perforation or abscess without bleeding
CPT/HCPCS: 00811; 45380; 45385; 88305; J2704

== ENCOUNTER 2019-02-10 10:33 | Emergency (ER) | payer MEDICARE ==
[~2019-02-10 10:33] MED LIST changes: -RANI-366 PO; +RANI-54 PO
[2019-02-10] MEDS ORDERED: NS(*) 0.9% 1000 ML BAG 1,000 ML IV ONE ×2 (10:54→12:25)
[2019-02-10] MEDS ORDERED: LOSA25TA57 PO (11:03)
--- NOTE | 2019-02-10 11:09 | ER Report ---
History and Physical Time Seen By MD: 11:00 Hx. of Stated Complaint: PATIENT REPORTS DIZZINESS SINCE 729. WAS BENDING DOWN TO PICK SOMETHING UP AND WHEN HE CAME UP BECAME VERY DIZZINESS HPI/ROS CHIEF COMPLAINT: Dizziness HISTORY OF PRESENT ILLNESS: 63 year old male presents to ED with dizziness that has been off and on for a month. Reports he feels like the room is tilted; when he tries to walk straight, he actually walks left. Reports dizziness usually starts when he gets out of bed in the mornings and will subside after walking for a minute. Reports that the dizziness will also go away after he lays down for a bit. Today the dizziness has not subsided and is worse than it previously has been. Reports headache in the left frontal and temporal areas associated with the dizziness. 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 He is being followed by Dr. Duffy for this. She has him on a current course of optic antibiotics and steroids. Currently the left optic nerve is still swollen, but the right is back to normal. Patient was placed on amiodarone approximately 6 months ago for abnormal heart rhythm. He is followed closely with cardiology and has an ablation scheduled for February. REVIEW OF SYSTEMS: Constitutional: Denies fever, change in appetite. Does report fatigue. He had severe septic infection 6 months ago. He has been fatigued since that time; reports he gets tired around noon most days. HENT: Blurry vision. Frontal and temporal headaches. No hearing difficulties. Respiratory: No cough, no dyspnea. Cardiovascular: No chest pain, no palpitations. Gastrointestinal: No vomiting, no abdominal pain. Musculoskeletal: No back pain. Neuro: Dizziness as noted in HPI. no syncope Allergies: Uncoded Allergies: DOGS (Allergy, Mild, SINUS DRAINAGE, 12/18/07) DUST (Allergy, Mild, SINUS INFECTION, 12/18/07) FEATHERS (Allergy, Mild, SINUS DRAINAGE, 12/18/07) Home Meds Active Scripts Meclizine Hcl (MECLIZINE HCL) 25 Mg Tab.chew, 25 MG PO Q6H for dizziness, #30 TAB.CHEW Prov:WALDEMAR ROMAN 02/10/19 Amoxicillin/Potassium Clav (AUGMENTIN 500-125 TABLET) 1 Each Tablet, 1 TAB PO Q12H for 10 Days, #20 TAB Prov:WALDEMAR ROMAN 02/10/19 Reported Medications Losartan Potassium (LOSARTAN POTASSIUM) 25 Mg Tablet, 25 MG PO QDAY 02/10/19 Amiodarone Hcl (AMIODARONE HCL) 200 Mg Tablet, 200 MG PO BID 12/25/18 Warfarin Sodium (WARFARIN SODIUM) 5 Mg Tablet, 5 MG PO QDAY, TAB 10/27/18 Fenofibrate,Micronized (TRICOR) 145 Mg Tab, 67 MG PO QDAY, #10 TAB 10/27/18 Cetirizine Hcl (ZYRTEC) 10 Mg Capsule, 5 MG PO QDAY, CAPSULE 10/27/18 Pantoprazole Sodium (PANTOPRAZOLE SODIUM) 40 Mg Tablet.dr, 20 MG PO QDAY, TAB.SR 06/30/18 Montelukast Sodium (SINGULAIR) 10 Mg Tablet, 1 TAB PO QDAY, TAB 06/30/18 Multivitamins W-Minerals (Multivitamin) 1 Cap Capsule, 1 CAP PO DAILY 12/18/07 Glucosamine Sulfate (Glucosamine) 500 Mg Capsule, 500 MG PO 12/18/07 Past Medical/Surgical History Past medical hx of A-fib/flutter- ablation scheduled for , HTN, hypercholesterolemia, liver abscess in August 2018- caused sepsis, umbilical hernia, prostate cancer with prostate removal, Ankle and collar bone fractures, diabetes. Hospitalized for sepsis in August of 2018. Past surgical hx of prostate removal, in 2009 or 2010, musculoskelatal surgeries- metal plate in left clavical and screws in left ankle, rhinoplasty, eye surgery due to optic nerve swelling in 11/2018. Reviewed Nurses Notes: Yes Hx Smoking: No Smoking Status: Never Smoker Exposure to Second Hand Smoke?: No Hx Substance Use Disorder: No Hx Alcohol Use: No (kid) Constitutional Vital Sign - Last 24 Hours 02/10/19 02/10/19 02/10/19 02/10/19 10:33 10:37 10:39 10:53 Temp 98.5 Pulse 68 63 61 Resp 16 28 B/P (MAP) 188/92 (124) 188/92 Pulse Ox 90 95 O2 Delivery Room Air 02/10/19 02/10/19 02/10/19 02/10/19 11:13 11:20 11:22 11:27 Pulse 69 70 Resp 17 B/P (MAP) 165/89 (114) Pulse Ox 92 O2 Flow Rate 2.0 02/10/19 02/10/19 02/10/19 02/10/19 11:30 11:47 12:00 12:07 Pulse 72 70 Resp 9 22 B/P (MAP) 166/91 (116) 157/81 (106) Pulse Ox 93 94 02/10/19 02/10/19 02/10/19 02/10/19 12:27 12:47 12:52 13:12 Pulse 69 69 70 70 Resp 21 Pulse Ox 94 94 93 92 02/10/19 02/10/19 13:17 13:37 Pulse 70 75 Resp 19 Pulse Ox 92 Physical Exam General Appearance: The patient is alert, has no immediate need for airway protection and no current signs of toxicity. Eyes: Pupils equal and round no injection. Extraocular movements intact in all crania bourne. PEERLA. Respiratory: Chest is non tender, lungs are clear to auscultation. Cardiac: regular rate and rhythm Gastrointestinal: Abdomen is soft and non tender, no masses, bowel sounds normal. Musculoskeletal: Neck: Neck is supple and non tender. Neuro: Negative pronator drift. Able to perform nose to finger and heel to mcnulty without difficulty. Upper and lower extremities with equal strength bilaterally. Positive jourdan-hallpike maneuver on right side. Extremities have full range of motion and are non tender. Skin: No rashes or lesions. DIFFERENTIAL DIAGNOSIS: After history and physical exam differential diagnosis was considered for BPPV, sinusitis, swollen optic nerve, brain neoplasm, dizziness. Medical Decision Making Data Points Result Diagram: 02/10/19 1100 02/10/19 1100 Laboratory Hematology Test 02/10/19 11:00 02/10/19 12:20 Red Blood Count 4.87 M/uL (4.00-5.60) Mean Corpuscular Volume 89.6 fL (80.0-96.0) Mean Corpuscular Hemoglobin 30.4 pg (26.0-33.0) Mean Corpuscular Hemoglobin Concent 33.9 g/dL (32.0-36.0) Red Cell Distribution Width 14.1 % (11.5-14.5) Mean Platelet Volume 9.3 fL (7.2-11.1) Neutrophils (%) (Auto) 78.9 % (39.4-72.5) Lymphocytes (%) (Auto) 13.0 % (17.6-49.6) Monocytes (%) (Auto) 6.6 % (4.1-12.4) Eosinophils (%) (Auto) 0.9 % (0.4-6.7) Basophils (%) (Auto) 0.6 % (0.3-1.4) Nucleated RBC Relative Count (auto) 0.3 /100WBC Neutrophils # (Auto) 7.8 K/uL (2.0-7.4) Lymphocytes # (Auto) 1.3 K/uL (1.3-3.6) Monocytes # (Auto) 0.7 K/uL (0.3-1.0) Eosinophils # (Auto) 0.1 K/uL (0.0-0.5) Basophils # (Auto) 0.1 K/uL (0.0-0.1) Nucleated RBC Absolute Count (auto) 0.03 K/uL Sodium Level 140 mmol/L (137-145) Potassium Level 4.6 mmol/L (3.5-5.0) Chloride Level 106 mmol/L (98-107) Carbon Dioxide Level 21 mmol/L (22-30) Blood Urea Nitrogen 43 mg/dl (9-21) Creatinine 3.30 mg/dl (0.66-1.25) Glomerular Filtration Rate Calc 18.9 Random Glucose 171 mg/dl (75-110) Calcium Level 9.4 mg/dl (8.4-10.2) Magnesium Level 1.6 mg/dl (1.7-2.2) Total Bilirubin 0.7 mg/dl (0.2-1.3) Aspartate Amino Transf (AST/SGOT) 22 U/L (0-35) Alanine Aminotransferase (ALT/SGPT) 19 U/L (0-56) Alkaline Phosphatase 71 U/L (0-126) Troponin I < 0.012 ng/ml Total Protein 7.4 g/dl (6.3-8.2) Albumin 4.0 g/dl (3.5-5.0) Urine Color Yellow Urine Clarity Clear Urine pH 5.0 pH (4.8-9.5) Urine Specific [place] 1.014 Urine Protein 100 mg/dL (NEGATIVE) Urine Glucose (UA) 50 mg/dL (NEGATIVE) Urine Ketones Negative mg/dL (NEGATIVE) Urine Blood Negative (NEGATIVE) Urine Nitrite Negative (NEGATIVE) Urine Bilirubin Negative (NEGATIVE) Urine Urobilinogen Negative mg/dL (0.2-1.9) Urine Leukocyte Esterase Negative (NEGATIVE) Urine RBC <1 /HPF (0-2/HPF) Urine WBC 1 /HPF (0-5/HPF) Urine Squamous Epithelial Cells Many /LPF (</=FEW) Urine Bacteria Negative /HPF (NONE-FEW) Urine Mucus None /HPF (NONE-FEW) Chemistry Test 02/10/19 11:00 02/10/19 12:20 White Blood Count 9.9 k/uL (4.5-11.0) Red Blood Count 4.87 M/uL (4.00-5.60) Hemoglobin 14.8 g/dL (14.0-18.0) Hematocrit 43.7 % (42.0-52.0) Mean Corpuscular Volume 89.6 fL (80.0-96.0) Mean Corpuscular Hemoglobin 30.4 pg (26.0-33.0) Mean Corpuscular Hemoglobin Concent 33.9 g/dL (32.0-36.0) Red Cell Distribution Width 14.1 % (11.5-14.5) Platelet Count 253 K/uL (150-450) Mean Platelet Volume 9.3 fL (7.2-11.1) Neutrophils (%) (Auto) 78.9 % (39.4-72.5) Lymphocytes (%) (Auto) 13.0 % (17.6-49.6) Monocytes (%) (Auto) 6.6 % (4.1-12.4) Eosinophils (%) (Auto) 0.9 % (0.4-6.7) Basophils (%) (Auto) 0.6 % (0.3-1.4) Nucleated RBC Relative Count (auto) 0.3 /100WBC Neutrophils # (Auto) 7.8 K/uL (2.0-7.4) Lymphocytes # (Auto) 1.3 K/uL (1.3-3.6) Monocytes # (Auto) 0.7 K/uL (0.3-1.0) Eosinophils # (Auto) 0.1 K/uL (0.0-0.5) Basophils # (Auto) 0.1 K/uL (0.0-0.1) Nucleated RBC Absolute Count (auto) 0.03 K/uL Glomerular Filtration Rate Calc 18.9 Calcium Level 9.4 mg/dl (8.4-10.2) Magnesium Level 1.6 mg/dl (1.7-2.2) Total Bilirubin 0.7 mg/dl (0.2-1.3) Aspartate Amino Transf (AST/SGOT) 22 U/L (0-35) Alanine Aminotransferase (ALT/SGPT) 19 U/L (0-56) Alkaline Phosphatase 71 U/L (0-126) Troponin I < 0.012 ng/ml Total Protein 7.4 g/dl (6.3-8.2) Albumin 4.0 g/dl (3.5-5.0) Urine Color Yellow Urine Clarity Clear Urine pH 5.0 pH (4.8-9.5) Urine Specific [place] 1.014 Urine Protein 100 mg/dL (NEGATIVE) Urine Glucose (UA) 50 mg/dL (NEGATIVE) Urine Ketones Negative mg/dL (NEGATIVE) Urine Blood Negative (NEGATIVE) Urine Nitrite Negative (NEGATIVE) Urine Bilirubin Negative (NEGATIVE) Urine Urobilinogen Negative mg/dL (0.2-1.9) Urine Leukocyte Esterase Negative (NEGATIVE) Urine RBC <1 /HPF (0-2/HPF) Urine WBC 1 /HPF (0-5/HPF) Urine Squamous Epithelial Cells Many /LPF (</=FEW) Urine Bacteria Negative /HPF (NONE-FEW) Urine Mucus None /HPF (NONE-FEW) Urinalysis Test 02/10/19 12:20 Urine Color Yellow Urine Clarity Clear Urine pH 5.0 pH (4.8-9.5) Urine Specific [place] 1.014 Urine Protein 100 mg/dL (NEGATIVE) Urine Glucose (UA) 50 mg/dL (NEGATIVE) Urine Ketones Negative mg/dL (NEGATIVE) Urine Blood Negative (NEGATIVE) Urine Nitrite Negative (NEGATIVE) Urine Bilirubin Negative (NEGATIVE) Urine Urobilinogen Negative mg/dL (0.2-1.9) Urine Leukocyte Esterase Negative (NEGATIVE) Urine RBC <1 /HPF (0-2/HPF) Urine WBC 1 /HPF (0-5/HPF) Urine Squamous Epithelial Cells Many /LPF (</=FEW) Urine Bacteria Negative /HPF (NONE-FEW) Urine Mucus None /HPF (NONE-FEW) EKG/Imaging EKG Interpretation 12 lead EKG: Rhythm: normal sinus rhythm at 60 beats per minute [place]: normal QRS: normal ST segments: normal Monitor Interpretation: Normal Sinus Rhythm Imaging FINDINGS: There is no intracranial hemorrhage, hydrocephalus or midline shift. The basal cisterns, dominguez-white differentiation, and convexity sulci are maintained. Normal orbital soft tissues. Unchanged mild patchy white matter hypoattenuation. Clear mastoid air cells. The sphenoid sinus is completely filled with mucosal thickening and secretions which is unchanged compared to MR. The right maxillary sinus is nearly completely filled with mucosal thickening and secretions similar to MR. No acute osseous abnormality. IMPRESSION: No acute intracranial abnormality. Mild unchanged chronic small vessel ischemic change. Unchanged filling of the sphenoid sinus and right maxillary sinus with mucosal thickening and secretions which appears to be chronic. ED Course/Re-evaluation ED Course Upon arrival to the ED, patient admitted to an exam room, hx and physical obtained, differentials considered. He presents to ED with dizziness that has been off and on for a month. Reports he feels like the room is tilted; when he tries to walk straight, he actually walks left. Reports dizziness usually starts when he gets out of bed in the mornings and will subside after walking for a minute. Reports that the dizziness will also go away after he lays down for a bit. Today the dizziness has not subsided and is worse than it previously has been. Reports headache in the left frontal and temporal areas associated with the dizziness. 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 He is being followed by Dr. Duffy for this. She has him on a current course of optic antibiotics and steroids. Currently the left optic nerve is still swollen, but the right is back to normal. On exam, lungs clear in all bourne, heart rate regular. Pupils equal and round no injection. Extraocular movements intact in all crania bourne. PEERLA. Negative pronator drift. Able to perform nose to finger and heel to mcnulty without difficulty. Upper and lower extremities with equal strength bilaterally. Positive jourdan-hallpike maneuver on right side. CBC, CMP, UA, troponin, magnesium, EKG, head CT ordered. IV started, 1000ml NS infused. EKG normal sinus rhythm. Labs unremarkable: WBC 9.9, NS 140, potassium 4.6, Magnesium slightly low at 1.6, creatinine elevated at 3.3 and BUN elevated at 43, negative troponin, negative UA. Patients creatinine level has been elevated in the past. Head CT findings: No acute intracranial abnormality. Mild unchanged chronic small vessel ischemic change. Unchanged filling of the sphenoid sinus and right maxillary sinus with mucosal thickening and secretions which appears to be chronic. Will infuse 1 more bag of NS and give one dose of meclizine 25mg. Will treat for BPPV and chronic sinusitis. Dr. Sharma consulted regarding what type of antibiotics he would like this patient to be on. Dr. Sharma would like augmentin started. He would also like to have the patient seen in his clinic by his PA for Annia maneuvers. Will place patient on antibiotics and refer to ENT for treatment of BPPV with Annia maneuvers. Patient is in agreement with plan of care. Patient reports improvement in symptoms with the meclizine. Decision to Disposition Date: Feb 10, 2019 Decision to Disposition Time: 14:02 Depart Departure Latest Vital Signs Vital Signs Date Time Temp Pulse Resp B/P (MAP) Pulse Ox O2 Delivery O2 Flow Rate FiO2 02/10/19 13:37 75 02/10/19 13:17 19 92 02/10/19 12:00 157/81 (106) 02/10/19 11:20 2.0 02/10/19 10:39 98.5 Room Air Impression: Primary Impression: Benign paroxysmal positional vertigo of right ear Additional Impression: Chronic maxillary sinusitis Condition: Improved Disposition: HOME OR SELF-CARE Referrals: ARIANA LARRY MD (PCP) ELAINA SHARMA JR, MD New Scripts Meclizine Hcl (MECLIZINE HCL) 25 Mg Tab.chew 25 MG PO Q6H for dizziness, #30 TAB.CHEW Prov: WALDEMAR ROMAN 02/10/19 Amoxicillin/Potassium Clav (AUGMENTIN 500-125 TABLET) 1 Each Tablet 1 TAB PO Q12H for 10 Days, #20 TAB Prov: WALDEMAR ROMAN 02/10/19 Patient Instructions: Benign Paroxysmal Positional Vertigo (ED), Sinusitis (ED) Additional Instructions: Please take augmentin as prescribed for a total of 10 days. You may take meclizine, 1 tab, every 6 hours as needed for dizziness. Drink lots of fluids and get plenty of rest. Follow-up with Dr. Sharma's office later this week. Follow-up with your primary care provider in the next 2-3 days. Please return to the ED if symptoms worsen, you have chest pain, difficulty br eathing, or any other concerns. DELIVERY REP/PA consult with MD: Verbally Problem Qualifiers WALDEMAR ROMAN Feb 10, 2019 11:09
[2019-02-10 11:13] LABS: PLATELET COUNT, AUTOMATED 253 K/uL (150-450)
[2019-02-10 12:00] VITALS: BP 157/81
--- NOTE | 2019-02-10 12:06 | EKG ---
FACILITY: [facility] [place] PATIENT NAME: CHARLOTTE ZHAO : [id number] MR: [id number] V: [id number] EXAM DATE: ORDERING PHYSICIAN: HERNAN ORTEGA TECHNOLOGIST: DEBORAH Solorzano Reason : DIZZY Blood Pressure : / mmHG Vent. Rate : 060 BPM Atrial Rate : 060 BPM P-R Int : 208 ms QRS Dur : 110 ms QT Int : 464 ms P-R-T Axes : 025 043 043 degrees QTc Int : 464 ms Sinus rhythm Borderline first degree AV block Nonspecific ST findings through anterior leads Confirmed by MARCOS SAHNI [id number] on 02/10/2019 8:13:46 PM Referred By: SHANNON Confirmed By:MARCOS SAHNI
--- NOTE | 2019-02-10 12:08 | RADIOLOGY IMAGING REPORT ---
FACILITY: [facility] PATIENT NAME: Edison Marquez : 1955 MR: [id number] V: [id number] EXAM DATE: ORDERING PHYSICIAN: HERNAN ORTEGA TECHNOLOGIST: [facility] Patient: Edison Marquez : 1955 Visit/Account:[id number] Date of Sevice: 02/10/[address] scan without contrast HISTORY: Headache, dizziness COMPARISONS: Brain MR November 11, 2018 TECHNIQUE: Non-contrast head CT was performed with sagittal and coronal reformations. One of the following dose optimization techniques was utilized in the performance of this exam: autom ated exposure control; adjustment of the mA and/or kV according to patient size; or use of iterative reconstruction technique. Specific details can be referenced in the facility's radiology CT exam ope rational policy. FINDINGS: There is no intracranial hemorrhage, hydrocephalus or midline shift. The basal cisterns, dominguez-white differentiation, and convexity sulci are maintained. Normal orbital soft tissues. Unchanged mild pa tchy white matter hypoattenuation. Clear mastoid air cells. The sphenoid sinus is completely filled with mucosal thickening and secreti ons which is unchanged compared to MR. The right maxillary sinus is nearly completely filled with mu cosal thickening and secretions similar to MR. No acute osseous abnormality. IMPRESSION: No acute intracranial abnormality. Mild unchanged chronic small vessel ischemic change. Unchanged filling of the sphenoid sinus and right maxillary sinus with mucosal thickening and secreti ons which appears to be chronic. Report Dictated By: Colten Singh MD at 02/10/2019 11:59 AM Report E-Signed By: Colten Singh MD at 02/10/2019 12:04 PM WSN:[id number]
[2019-02-10] MEDS ORDERED: MECLIZINE HCL 25 MG TAB PO ONE (12:35)
[2019-02-10] MEDS ORDERED: AMOX-556 PO (12:46)
[2019-02-10] MEDS ORDERED: MECL25TA27 PO (12:46)
== END 2019-02-10 13:55 | disposition home or self-care (01) ==
LOC: ER 10:59
DX: H81.11 Benign paroxysmal vertigo, right ear (principal); J32.0 Chronic maxillary sinusitis; I10 Essential (primary) hypertension
CPT/HCPCS: 70450; 81001; 83735; 84484; 85025; 93005; 96360; 96361; 99284; J7030; J8597; 82040; 82247; 82310; 82374; 82435; 82565; 82947; 84075; 84132; 84155; 84295; 84450; 84460; 84520

== ENCOUNTER → 2019-02-17 | Outpatient (CLI) | payer MEDICARE ==
[~2019-02-17] MED LIST changes: +AMOX-556 PO; +LOSA25TA57 PO; +MECL25TA27 PO
== END ==
LOC: RAD 01:13
PROVIDERS: ATTEND Internal Medicine
DX: I51.7 Cardiomegaly (principal); I31.3 Pericardial effusion (noninflammatory)
CPT/HCPCS: 93306

== ENCOUNTER 2019-03-10 09:34 | Inpatient (IN) | payer MEDICARE ==
[~2019-03-10 09:34] MED LIST changes: +DOXY-179 PO; +MUPI22OI28
--- NOTE | 2019-03-10 09:35 | ER Report ---
History and Physical Time Seen By MD: 09:33 HPI/ROS CHIEF COMPLAINT: Generalized weakness, dizziness, worsening fatigue on minimal exertion, left-sided facial numbness HISTORY OF PRESENT ILLNESS: Patient is a 63-year-old male here with complaints of generalized weakness, progressive fatigue on minimal exertion which is been ongoing and worsening since August. Patient reports that approximately one week ago he developed left-sided facial numbness, numbness of the left side of his tongue. Patient's family convinced the patient come in for evaluation since the symptoms have not improved. Patient does report that he had been transferred in August to [facility] after coming in and septic shock with a liver abscess. Patient reports that he has had decreased renal function since that time and seemingly has had increasing creatinine levels over the past several months. Patient also reports that he did recently have a cardiac ablation for atrial flutter however during the procedure he developed a pericardial effusion causing the procedure be put on hold. Patient is scheduled to have a separate ablation in the near future. Patient has decreased appetite, nausea without vomiting however he does not have any motor dysfunction, focal neurological findings on examination aside from subjective numbness of the left side of his face. Patient does report that he has had ongoing dizziness which has been evaluated by ear nose and throat. REVIEW OF SYSTEMS: Constitutional: No fever, no chills. Eyes: No discharge. ENT: No sore throat. Cardiovascular: No chest pain, no palpitations. Respiratory: No cough, no shortness of breath. Gastrointestinal: No abdominal pain, no vomiting. + nausea Genitourinary: No hematuria. Musculoskeletal: No back pain. Generalized weakness Skin: No rashes. Neurological: No headache, + left facial numbness, fatigue, dizziness Allergies: Uncoded Allergies: DOGS (Allergy, Mild, SINUS DRAINAGE, 12/18/07) DUST (Allergy, Mild, SINUS INFECTION, 12/18/07) FEATHERS (Allergy, Mild, SINUS DRAINAGE, 12/18/07) Home Meds Active Scripts Meclizine Hcl (MECLIZINE HCL) 25 Mg Tab.chew, 25 MG PO Q6H PRN for DIZZINESS, #30 TAB.CHEW Prov:DEANN PABLO MD 03/10/19 Mupirocin (MUPIROCIN) 22 Gm Oint...g., 1 GRISELDA NA BID for 14 Days, #1 TUBE 3 Refills Prov:ALYSIA COOK PA-C 02/19/19 Reported Medications Apixaban (ELIQUIS) 5 Mg Tablet, 5 MG PO BID 03/10/19 Losartan Potassium (LOSARTAN POTASSIUM) 25 Mg Tablet, 25 MG PO QDAY 02/10/19 Amiodarone Hcl (AMIODARONE HCL) 200 Mg Tablet, 200 MG PO DAILY 12/25/18 Fenofibrate,Micronized (TRICOR) 145 Mg Tab, 67 MG PO QDAY, #10 TAB 10/27/18 Cetirizine Hcl (ZYRTEC) 10 Mg Capsule, 5 MG PO QDAY PRN for ALLERGY SYMPTOMS, CAPSULE 10/27/18 Pantoprazole Sodium (PANTOPRAZOLE SODIUM) 40 Mg Tablet.dr, 20 MG PO QDAY, TAB.SR 06/30/18 Montelukast Sodium (SINGULAIR) 10 Mg Tablet, 1 TAB PO HS, TAB 06/30/18 Multivitamins W-Minerals (Multivitamin) 1 Cap Capsule, 1 CAP PO DAILY 12/18/07 Glucosamine Sulfate (Glucosamine) 500 Mg Capsule, 500 MG PO 12/18/07 Discontinued Reported Medications Warfarin Sodium (WARFARIN SODIUM) 5 Mg Tablet, 5 MG PO QDAY, TAB 10/27/18 Discontinued Scripts Doxycycline Hyclate (DOXYCYCLINE HYCLATE) 100 Mg Tablet, 100 MG PO BID for 10 Days, #20 TAB 0 Refills Prov:ALYSIA COOK PA-C 02/19/19 Amoxicillin/Potassium Clav (AUGMENTIN 500-125 TABLET) 1 Each Tablet, 1 TAB PO Q12H for 10 Days, #20 TAB Prov:WALDEMAR ROMAN [employer] 02/10/19 Hx Smoking: No Smoking Status: Never Smoker Exposure to Second Hand Smoke?: No Hx Substance Use Disorder: No Hx Alcohol Use: No (kid) Constitutional Vital Sign - Last 24 Hours 03/10/19 03/10/19 03/10/19 03/10/19 09:34 09:36 09:38 10:04 Temp 98.8 Pulse ??? 66 69 Resp 20 B/P (MAP) 152/73 (99) 152/73 Pulse Ox 90 87 O2 Delivery Room Air 03/10/19 03/10/19 03/10/19 03/10/19 10:06 10:30 10:34 11:00 Pulse 66 B/P (MAP) 138/83 (101) 136/77 (96) 137/84 (101) Pulse Ox 88 03/10/19 03/10/19 03/10/19 03/10/19 11:05 11:30 11:35 12:00 Pulse 67 66 B/P (MAP) 142/86 (104) 141/84 (103) Pulse Ox 89 90 03/10/19 12:05 Pulse 67 Pulse Ox 89 Physical Exam General Appearance: The patient is alert, has no immediate need for airway protection and no signs of toxicity. Uncomfortable appearing, somnolent Eyes: Pupils equal and round no pallor or injection. ENT, Mouth: Mucous membranes are moist. Respiratory: There are no retractions, lungs are clear to auscultation. Cardiovascular: Regular rate and rhythm. No gallops or rubs Gastrointestinal: Abdomen is soft and non tender, no masses, bowel sounds normal. Neurological: No focal neurological deficits on exam, patient does report having left-sided facial numbness, numbness the left side of the tongue however he has good motor function in all extremities, cranial nerves are intact, no facial droop present Skin: Warm and dry, no rashes. Musculoskeletal: Neck is supple non tender. Extremities are nontender, nonswollen and have full range of motion. DIFFERENTIAL DIAGNOSIS: After history and physical exam differential diagnosis was considered for weakness including but not limited to electrolyte abnormality, depression, anxiety, CVA, spinal cord abnormality, and infectious causes. Medical Decision Making Data Points Result Diagram: 03/10/19 1005 03/10/19 1005 Laboratory Hematology Test 03/10/19 10:05 03/10/19 10:08 03/10/19 11:53 Red Blood Count 4.85 M/uL (4.00-5.60) Mean Corpuscular Volume 90.9 fL (80.0-96.0) Mean Corpuscular Hemoglobin 31.1 pg (26.0-33.0) Mean Corpuscular Hemoglobin Concent 34.3 g/dL (32.0-36.0) Red Cell Distribution Width 14.0 % (11.5-14.5) Mean Platelet Volume 9.5 fL (7.2-11.1) Neutrophils (%) (Auto) 68.9 % (39.4-72.5) Lymphocytes (%) (Auto) 19.8 % (17.6-49.6) Monocytes (%) (Auto) 7.6 % (4.1-12.4) Eosinophils (%) (Auto) 2.6 % (0.4-6.7) Basophils (%) (Auto) 1.1 % (0.3-1.4) Nucleated RBC Relative Count (auto) 0.1 /100WBC Neutrophils # (Auto) 5.8 K/uL (2.0-7.4) Lymphocytes # (Auto) 1.7 K/uL (1.3-3.6) Monocytes # (Auto) 0.6 K/uL (0.3-1.0) Eosinophils # (Auto) 0.2 K/uL (0.0-0.5) Basophils # (Auto) 0.1 K/uL (0.0-0.1) Nucleated RBC Absolute Count (auto) 0.01 K/uL Peripheral Blood Smear No Y/N Erythrocyte Sedimentation Rate 26 mm/HOUR (0-20) Sodium Level 138 mmol/L (137-145) Potassium Level 4.7 mmol/L (3.5-5.0) Chloride Level 106 mmol/L (98-107) Carbon Dioxide Level 19 mmol/L (22-30) Blood Urea Nitrogen 47 mg/dl (9-21) Creatinine 3.30 mg/dl (0.66-1.25) Glomerular Filtration Rate Calc 18.9 Random Glucose 215 mg/dl (75-110) Calcium Level 9.2 mg/dl (8.4-10.2) Total Bilirubin 0.7 mg/dl (0.2-1.3) Aspartate Amino Transf (AST/SGOT) 21 U/L (0-35) Alanine Aminotransferase (ALT/SGPT) 27 U/L (0-56) Alkaline Phosphatase 77 U/L (0-126) C-Reactive Protein < 0.5 mg/dl (<1.0) Total Protein 7.3 g/dl (6.3-8.2) Albumin 3.9 g/dl (3.5-5.0) Prothrombin Time 15.3 seconds (12.0-14.4) Prothromb Time International Ratio 1.21 Activated Partial Thromboplast Time 39 seconds (23-35) B-Type Natriuretic Peptide 9 pg/ml (0-100) Lactate 1.3 mmol/L (0.7-2.1) Total Creatine Kinase 48 U/L (55-170) Troponin I < 0.012 ng/ml Lipase 118 U/L (23-300) Chemistry Test 03/10/19 10:05 03/10/19 10:08 03/10/19 11:53 White Blood Count 8.4 k/uL (4.5-11.0) Red Blood Count 4.85 M/uL (4.00-5.60) Hemoglobin 15.1 g/dL (14.0-18.0) Hematocrit 44.1 % (42.0-52.0) Mean Corpuscular Volume 90.9 fL (80.0-96.0) Mean Corpuscular Hemoglobin 31.1 pg (26.0-33.0) Mean Corpuscular Hemoglobin Concent 34.3 g/dL (32.0-36.0) Red Cell Distribution Width 14.0 % (11.5-14.5) Platelet Count 228 K/uL (150-450) Mean Platelet Volume 9.5 fL (7.2-11.1) Neutrophils (%) (Auto) 68.9 % (39.4-72.5) Lymphocytes (%) (Auto) 19.8 % (17.6-49.6) Monocytes (%) (Auto) 7.6 % (4.1-12.4) Eosinophils (%) (Auto) 2.6 % (0.4-6.7) Basophils (%) (Auto) 1.1 % (0.3-1.4) Nucleated RBC Relative Count (auto) 0.1 /100WBC Neutrophils # (Auto) 5.8 K/uL (2.0-7.4) Lymphocytes # (Auto) 1.7 K/uL (1.3-3.6) Monocytes # (Auto) 0.6 K/uL (0.3-1.0) Eosinophils # (Auto) 0.2 K/uL (0.0-0.5) Basophils # (Auto) 0.1 K/uL (0.0-0.1) Nucleated RBC Absolute Count (auto) 0.01 K/uL Peripheral Blood Smear No Y/N Erythrocyte Sedimentation Rate 26 mm/HOUR (0-20) Glomerular Filtration Rate Calc 18.9 Calcium Level 9.2 mg/dl (8.4-10.2) Total Bilirubin 0.7 mg/dl (0.2-1.3) Aspartate Amino Transf (AST/SGOT) 21 U/L (0-35) Alanine Aminotransferase (ALT/SGPT) 27 U/L (0-56) Alkaline Phosphatase 77 U/L (0-126) C-Reactive Protein < 0.5 mg/dl (<1.0) Total Protein 7.3 g/dl (6.3-8.2) Albumin 3.9 g/dl (3.5-5.0) Prothrombin Time 15.3 seconds (12.0-14.4) Prothromb Time International Ratio 1.21 Activated Partial Thromboplast Time 39 seconds (23-35) B-Type Natriuretic Peptide 9 pg/ml (0-100) Lactate 1.3 mmol/L (0.7-2.1) Total Creatine Kinase 48 U/L (55-170) Troponin I < 0.012 ng/ml Lipase 118 U/L (23-300) Coagulation Test 03/10/19 10:08 Prothrombin Time 15.3 seconds Prothromb Time International Ratio 1.21 Activated Partial Thromboplast Time 39 seconds EKG/Imaging Imaging PATIENT NAME: Edison Marquez : 1955 MR: [id number] V: [id number] EXAM DATE: ORDERING PHYSICIAN: EVAN IVY TECHNOLOGIST: Location: [facility] - [place] Patient: Edison Marquez : 1955 Visit/Account:[id number] Date of Sevice: 03/10/[address] scan without contrast HISTORY: HEADACHE COMPARISONS: February 10, 2019 TECHNIQUE: Non-contrast head CT was performed with sagittal and coronal reformations. One of the following dose optimization techniques was utilized in the performance of this exam: automated exposure control; adjustment of the mA and/or kV according to patient size; or use of iterative reconstruction technique. Specific details can be referenced in the facility's radiology CT exam operational policy. FINDINGS: There is no intracranial hemorrhage, hydrocephalus or midline shift. The basal cisterns, weber-white differentiation, and convexity sulci are maintained. Normal orbital soft tissues. Mild unchanged patchy white matter hy poattenuation. Clear mastoid air cells. The right maxillary sinus is nearly completely opacified with mucosal thickening and secretions similar to prior. The sphenoid sinus is completely filled with mucosal thickening and dense secretions similar to prior. No acute osseous abnormality. IMPRESSION: No acute intracranial abnormality. Unchanged right maxillary sinus and sphenoid sinus chronic sinus disease. The secretions within the sphenoid sinus are dense as before which may reflect inspissated secretions or chronic fungal colonization. Report Dictated By: Colten Singh MD at 03/10/2019 10:52 AM Report E-Signed By: Colten Singh MD at 03/10/2019 10:58 AM WSN:[id number] PATIENT NAME: Edison Marquez : 1955 MR: [id number] V: [id number] EXAM DATE: ORDERING PHYSICIAN: EVAN IVY TECHNOLOGIST: Location: [facility] - [place] Patient: Edison Marquez : 1955 Visit/Account:[id number] Date of Sevice: 03/10/2019 EXAMINATION: MRI Brain without intravenous contrast HISTORY: Left facial numbness. COMPARISON: Brain MRI dated 11/11/2018. TECHNIQUE: Multi-planar, multi-sequence brain MRI was performed without IV contrast administration. FINDINGS: Brain volume: Normal. Sagittal midline structures: Negative. Ventricles: Negative. Acute ischemic changes: Restricted diffusion and T2/FLAIR hyperintensity in the left cerebellar peduncle. Hemorrhage: None. Masses / edema: None. Weber-white: Negative. White matter: Patchy FLAIR hyperintensity in the periventricular and deep white matter. Vessels: Negative. Extra-axial: Negative. Calvarium / scalp: Negative. Skull base: Negative. Visualized sinuses / orbits: T1 hyperintense and T2 hypointense material in the right maxillary and left sphenoid sinuses suspicious for inspissated secretions or fungal colonization. Rightward nasal septal deviation. Visualized upper neck: Right atlantooccipital joint effusion. IMPRESSION: Restricted diffusion in the left cerebellar peduncle measuring 1.6 cm. Most likely an acute lacunar infarction. Although, given the presence of white matter disease this could be demyelination. No hemorrhage. No significant mass effect. Results were called to EVAN IVY at 03/10/2019 1:09 PM. ED Course/Re-evaluation ED Course Patient is a 63-year-old male here with complaints of left sided facial numbness, numbness the left side of the tongue, generalized weakness, fatigue on minimal exertion with prior history of septic shock with a liver abscess and subsequent development of hepatic and renal failure with steadily worsening creatinine over the past several months. Patient developed left-sided facial numbness one week ago and has been noticing increasing weakness and no resolution of the numbness. Patient also reports that he has developed intermittent idiopathic pancreatitis, recently had an ablation with subsequent development of pericardial effusion which has improved on echo planned for a 2nd ablation in the near future. Patient is afebrile, hemodynamically stable at time of evaluation. Patient's ESR was moderately elevated however CRP was normal, there is no leukocytosis, electrolytes are stable, creatinine is stable at 3.[address] imaging of the head was completed and showed no acute intracranial findings. I reevaluated the patient and upon further questioning determine that MRI was warranted on this patient as well as had on for CPK, troponin, PT/INR (as the patient was recently started on a course proximate 2 weeks ago), lactate, lipase due to his prior history of pancreatitis, BNP. CPK, lactate, troponin, lipase were found to be normal. MRI came back positive for 1.6 and meter wrist trick didn't effusion of the left cerebellar peduncle consistent with an acute CVA. Romberg negative, negative for pronator drift, negative for facial droop or cranial nerve deficits. I did discuss the patient with Dr. Torres with neurology at [facility]. Recommend further stroke workup. I discussed patient with Dr. Pablo who admitted the patient to the hospitalist service. Patient was stable at time of admission Decision to Disposition Date: Mar 10, 2019 Decision to Disposition Time: 14:39 Depart Departure Latest Vital Signs Vital Signs Date Time Temp Pulse Resp B/P (MAP) Pulse Ox O2 Delivery O2 Flow Rate FiO2 03/10/19 12:05 67 89 03/10/19 12:00 141/84 (103) 03/10/19 09:38 98.8 20 Room Air Impression: Primary Impression: Cerebellar stroke Condition: Improved Disposition: Admitted from ER Referrals: ARIANA LARRY MD (PCP) New Scripts Meclizine Hcl (MECLIZINE HCL) 25 Mg Tab.chew 25 MG PO Q6H PRN for DIZZINESS, #30 TAB.CHEW Prov: DEANN PABLO MD 03/10/19 EVAN IVY DO Mar 10, 2019 09:35
[2019-03-10 10:17] LABS: PLATELET COUNT, AUTOMATED 228 K/uL (150-450)
--- NOTE | 2019-03-10 11:05 | RADIOLOGY IMAGING REPORT ---
FAC[place] [facility] [place]IENT NAME: Edison Marquez : 1955 MR: [id number] V: [id number] EXAM DATE: ORDERING PHYSICIAN: EVAN IVY TECHNOLOGIST: Location: [facility] - [place] Patient: Edison Marquez : 1955 Visit/Account:[id number] Date of Sevice: 03/10/[address] scan without contrast HISTORY: HEADACHE COMPARISONS: February 10, 2019 TECHNIQUE: Non-contrast head CT was performed with sagittal and coronal reformations. One of the following dose optimization techniques was utilized in the performance of this exam: autom ated exposure control; adjustment of the mA and/or kV according to patient size; or use of iterative reconstruction technique. Specific details can be referenced in the facility's radiology CT exam ope rational policy. FINDINGS: There is no intracranial hemorrhage, hydrocephalus or midline shift. The basal cisterns, dominguez-white differentiation, and convexity sulci are maintained. Normal orbital soft tissues. Mild unchanged pa tchy white matter hypoattenuation. Clear mastoid air cells. The right maxillary sinus is nearly completely opacified with mucosal thick ening and secretions similar to prior. The sphenoid sinus is completely filled with mucosal thickeni ng and dense secretions similar to prior. No acute osseous abnormality. IMPRESSION: No acute intracranial abnormality. Unchanged right maxillary sinus and sphenoid sinus chronic sinus disease. The secretions within the sphenoid sinus are dense as before which may reflect inspissated secretions or chronic fungal coloniz ation. Report Dictated By: Colten Singh MD at 03/10/2019 10:52 AM Report E-Signed By: Colten Singh MD at 03/10/2019 10:58 AM WSN:[id number]
[2019-03-10 12:23] LABS: INR 1.21
--- NOTE | 2019-03-10 13:20 | RADIOLOGY IMAGING REPORT ---
FACILITY: [facility] PATIENT NAME: Edison Marquez : 1955 MR: [id number] V: [id number] EXAM DATE: ORDERING PHYSICIAN: EVAN IVY [place]CHNOLOG[place] [facility] [place] : 1955 Visit/Account:[id number] Date of Sevice: 03/10/2019 EXAMINATION: MRI Brain without intravenous contrast HISTORY: Left facial numbness. COMPARISON: Brain MRI dated 11/11/2018. TECHNIQUE: Multi-planar, multi-sequence brain MRI was performed without IV contrast administration. FINDINGS: Brain volume: Normal. Sagittal midline structures: Negative. Ventricles: Negative. Acute ischemic changes: Restricted diffusion and T2/FLAIR hyperintensity in the left cerebellar pedu ncle. Hemorrhage: None. Masses / edema: None. Weber-white: Negative. White matter: Patchy FLAIR hyperintensity in the periventricular and deep white matter. Vessels: Negative. Extra-axial: Negative. Calvarium / scalp: Negative. Skull base: Negative. Visualized sinuses / orbits: T1 hyperintense and T2 hypointense material in the right maxillary and left sphenoid sinuses suspicious for inspissated secretions or fungal colonization. Rightward nasal septal deviation. Visualized upper neck: Right atlantooccipital joint effusion. IMPRESSION: Restricted diffusion in the left cerebellar peduncle measuring 1.6 cm. Most likely an ac alfie lacunar infarction. Although, given the presence of white matter disease this could be demyelina tion. No hemorrhage. No significant mass effect. Results were called to EVAN IVY at 03/10/2019 1:09 PM. Report Dictated By: Sujit Casanova MD at 03/10/2019 1:06 PM Report E-Signed By: Sujit Casanova MD at 03/10/2019 1:14 PM WSN:[id number]
[2019-03-10] MEDS ORDERED: MECL25TA27 PO (14:17)
[2019-03-10] MEDS ORDERED: APIX5TAB PO (14:33)
[2019-03-10] MEDS ORDERED: FLUSH 10 ML SYR IVP PRN (15:00)
[2019-03-10 15:29] VITALS: BP 145/86
[2019-03-10] MEDS: ASPIRIN 81 MG CHEW PO SCH (15:46)
[2019-03-10] MEDS ORDERED: FENO67CA3 PO (15:46)
--- NOTE | 2019-03-10 15:47 | History & Physical ---
History of Present Illness History of Present Illness 63yo male with a h/o CKD, T2DM and HTN who came to the ER for left sided tongue and left side of mouth numbness. About a week ago, he had been exerted himself in hot weather and got a significant sunburn to his face/hands. The burn was exacerbated by the fact that he was finishing or had just finished a course of doxycycline. He woke up the next morning and couldn't feel the left side of his tongue, left lower and upper lips. The numbness has improved a bit, but has persisted. Finally, his family convinced him to come to the ER to have it investigated. He was switched from Warfarin to Eliquis 2 weeks in anticipation of a heart ablation on 04/02. He denies any focal extremity weakness/numbness/tingling. He denies difficulty with swallowing. No tobacco or alcohol use. History Problems: (1) HTN (hypertension) (2) GERD (gastroesophageal reflux disease) (3) CKD (chronic kidney disease) stage 4, GFR 15-29 ml/min Status: Chronic (4) Liver abscess Status: Resolved Home Meds Active Scripts Meclizine Hcl (MECLIZINE HCL) 25 Mg Tab.chew, 25 MG PO Q6H PRN for DIZZINESS, #30 TAB.CHEW Prov:DEANN PABLO MD 03/10/19 Mupirocin (MUPIROCIN) 22 Gm Oint...g., 1 GRISELDA NA BID for 14 Days, #1 TUBE 3 Refills Prov:CINTHIA MORENO PA-C 02/19/19 Reported Medications Apixaban (ELIQUIS) 5 Mg Tablet, 5 MG PO BID 03/10/19 Losartan Potassium (LOSARTAN POTASSIUM) 25 Mg Tablet, 25 MG PO QDAY 02/10/19 Amiodarone Hcl (AMIODARONE HCL) 200 Mg Tablet, 200 MG PO DAILY 12/25/18 Fenofibrate,Micronized (TRICOR) 145 Mg Tab, 67 MG PO QDAY, #10 TAB 10/27/18 Cetirizine Hcl (ZYRTEC) 10 Mg Capsule, 5 MG PO QDAY PRN for ALLERGY SYMPTOMS, CAPSULE 10/27/18 Pantoprazole Sodium (PANTOPRAZOLE SODIUM) 40 Mg Tablet.dr, 20 MG PO QDAY, TAB.SR 10/21/18 Montelukast Sodium (SINGULAIR) 10 Mg Tablet, 1 TAB PO HS, TAB 06/30/18 Multivitamins W-Minerals (Multivitamin) 1 Cap Capsule, 1 CAP PO DAILY 12/18/07 Glucosamine Sulfate (Glucosamine) 500 Mg Capsule, 500 MG PO 12/18/07 Discontinued Reported Medications Warfarin Sodium (WARFARIN SODIUM) 5 Mg Tablet, 5 MG PO QDAY, TAB 10/27/18 Discontinued Scripts Doxycycline Hyclate (DOXYCYCLINE HYCLATE) 100 Mg Tablet, 100 MG PO BID for 10 Days, #20 TAB 0 Refills Prov:CINTHIA MORENO PA-C 02/19/19 Amoxicillin/Potassium Clav (AUGMENTIN 500-125 TABLET) 1 Each Tablet, 1 TAB PO Q12H for 10 Days, #20 TAB Prov:WALDEMAR ROMAN 02/10/19 Allergies: Uncoded Allergies: DOGS (Allergy, Mild, SINUS DRAINAGE, 12/18/07) DUST (Allergy, Mild, SINUS INFECTION, 12/18/07) FEATHERS (Allergy, Mild, SINUS DRAINAGE, 12/18/07) Hx Smoking: No Smoking Status: Never Smoker Exposure to Second Hand Smoke?: No Caffeine Intake: Soda Caffeine/Cups Per Day: 1- "Zero" soda brand Hx Alcohol Use: No (kid) Hx Substance Use Disorder: No Social Drug Use: Never Review of Systems All Systems Reviewed/Normal: Yes, Except as Noted Exam Vital Signs Vital Signs Date Time Temp Pulse Resp B/P (MAP) Pulse Ox O2 Delivery O2 Flow Rate FiO2 03/10/19 12:05 67 89 03/10/19 12:00 141/84 (103) 03/10/19 09:38 98.8 20 Room Air General Appearance: Alert, Awake, No Acute Distress Neuro: Other (No facial droop. EOMI. Normal sensation to light touch in hands/feet. Symmetric strength in UE and LE. Decreased sensation to left upper and lower lips.) ENT: Other (0.5cm white plaque on mucosa of lower lip on left. No tongue sores) Cardiovascular: Regular Rate and Rhythm Respiratory: Clear to Auscultation Extremities: No Edema Integumentary: Other (erythema on cheeks, forehead, nose. Macular erythema on dorsum of fingers bilaterally) Medical Decision Making Data Points Result Diagram: 03/10/19 1005 03/10/19 1005 Item Value Date Time Lipase 118 U/L 03/10/19 1153 C-Reactive Protein < 0.5 mg/dl 03/10/19 1005 Troponin I < 0.012 ng/ml 03/10/19 1153 Total Creatine Kinase 48 U/L L 03/10/19 1153 B-Type Natriuretic Peptide 9 pg/ml 03/10/19 1008 Lactate 1.3 mmol/L 03/10/19 1153 Total Bilirubin 0.7 mg/dl 03/10/19 1005 Aspartate Amino Transf (AST/SGOT) 21 U/L 03/10/19 1005 Alanine Aminotransferase (ALT/SGPT) 27 U/L 03/10/19 1005 Alkaline Phosphatase 77 U/L 03/10/19 1005 Erythrocyte Sedimentation Rate 26 mm/HOUR H 03/10/19 1005 Prothromb Time International Ratio 1.21 03/10/19 1008 Neutrophils (%) (Auto) 68.9 % 03/10/19 1005 Lymphocytes (%) (Auto) 19.8 % 03/10/19 1005 Monocytes (%) (Auto) 7.6 % 03/10/19 1005 Eosinophils (%) (Auto) 2.6 % 03/10/19 1005 EKG / Imaging Imaging Brain MRI - Restricted diffusion in the left cerebellar peduncle measuring 1.6 cm. Most likely an acute lacunar infarction. Although, given the presence of white matter disease this could be demyelination. No hemorrhage. No significant mass effect. Head CT - No acute intracranial abnormality. Unchanged right maxillary sinus and sphenoid sinus chronic sinus disease. The secretions within the sphenoid sinus are dense as before which may reflect inspissated secretions or chronic fungal colonization. Assessment and Plan Problems: (1) Cerebellar stroke Status: Acute Assessment & Plan: He presented with 7 days of left sided tongue and lips numbness. He has evidence of a left cerebellar peduncle stroke on MRI. Neurology recommended admission to get an MRA of head/neck, continue Eliquis and add ASA. The patient was switched from warfarin to Eliquis 2 weeks, but neurology didn't think it was a treatment failure. ST to evaluate and treat. (2) Atrial fibrillation Status: Chronic Assessment & Plan: He has had atrial fibrillation for about 6 months. He chronically in it. He had a failed ablation attempt because he developed a p ericardial effusion. He is to have a second attempt done on 04/02. He is chronically on amiodarone daily, but is supposed to stop on 03/12 in preparation for the the ablation. He is on Eliquis 5mg bid. See above. He will be placed on telemetry. (3) CKD (chronic kidney disease) stage 4, GFR 15-29 ml/min Status: Chronic Assessment & Plan: Secondary to ARF from sepsis from liver abscesses 08/27. He was on acute dialysis for 3 weeks. Baseline creatinine is 3.3 for the last month. He is chronically on losartan. Will need to follow creatinine after starting ASA. (4) Skin erythema Status: Acute Assessment & Plan: He had a sunburn over a week ago and was finishing or had just finished doxycycline which likely exacerbated the burn. The skin on the dorsal aspect of his fingers is erythematous but atypical for sunburn. Will follow. (5) T2DM (type 2 diabetes mellitus) Status: Chronic Assessment & Plan: Diet controlled. (6) Sinusitis Status: Chronic Assessment & Plan: Seen on CT of head. Followed by Cinthia Moreno. Continue mupirocin treatment. Copies to: ARIANA LARRY MD; PAULINO HODGES MD ; Venous Thromboembolism Antithrombotics Is Pt On Any Antithrombotics?: Yes Exam Sepsis Risk: No Definite Risk DEANN PABLO MD Mar 10, 2019 15:47
--- NOTE | 2019-03-10 17:52 | EKG ---
FACILITY: [facility] PATIENT NAME: CHARLOTTE ZHAO : [id number] MR: [id number] V: [id number] EXAM DATE: ORDERING PHYSICIAN: DEANN PABLO TECHNOLOGIST: Test Reason : HX of AFIB Blood Pressure : / mmHG Vent. Rate : 070 BPM Atrial Rate : 070 BPM P-R Int : 192 ms QRS Dur : 108 ms QT Int : 436 ms P-R-T Axes : 048 064 042 degrees QTc Int : 470 ms Normal sinus rhythm Normal ECG When compared with ECG of 10-FEB-2019 10:55, Relatively unchanged Confirmed by DEANN PABLO ([id number]) on 03/11/2019 6:46:26 AM Referred By: Confirmed By:DEANN PABLO
[2019-03-10 18:58] VITALS: BP 159/74
[2019-03-10] MEDS: APIXABAN 2.5 MG TABLET PO SCH (20:27)
[2019-03-10] MEDS: MUPIROCIN 2% OINT 22 GM TUBE TP SCH (20:27)
[2019-03-10] MEDS ORDERED: MONTELUKAST SODIUM 10 MG TAB PO SCH (21:00)
[2019-03-10] MEDS ORDERED: LOSARTAN POTASSIUM 50 MG TAB PO SCH (21:00)
[2019-03-10 23:35] VITALS: BP 132/74
[2019-03-11 03:26] VITALS: BP 148/80
[2019-03-11 06:58] VITALS: BP 156/84
[2019-03-11] MEDS: APIXABAN 2.5 MG TABLET PO SCH (08:32)
[2019-03-11] MEDS: MUPIROCIN 2% OINT 22 GM TUBE TP SCH (08:32)
[2019-03-11] MEDS: ASPIRIN 81 MG CHEW PO SCH (08:32)
[2019-03-11] MEDS ORDERED: AMIODARONE 200 MG TAB PO SCH (09:00)
[2019-03-11] MEDS ORDERED: LOSARTAN POTASSIUM 50 MG TAB PO SCH (09:00)
[2019-03-11] MEDS ORDERED: FENOFIBRATE,MICRON 145 MG TAB PO SCH (09:00)
[2019-03-11] MEDS ORDERED: PANTOPRAZOLE SOD 40 MG TABEC PO SCH (09:00)
--- NOTE | 2019-03-11 09:46 | SLP BEDSIDE SWALLOW EVALUATION ---
SPEECH THERAPY ASSESSMENT Bedside dysphagia evaluation Ordering Physician: Dr. Stanley Handley MD Clinician: Savannah Martinez MS, CCC-MILITARY PROFESSIONAL Type of Assessment: Bedside Dysphagia Evaluation; cognitive linguistic consult Patient: Edison Marquez : 51 Evaluation Date: 03/11/2019 BACKGROUND The patient is a 63-year-old male admitted to [facility] on 03/10/2019 after experiencing persistent L-sided facial numbness (lips, tongue) for appx 1 week leading up to hospitalization. Brain MRI was suspicious for L acute lacunar infarction with restricted difficusion in the L cerebellar peduncle. An ST consult was requested for completion of a bedside swallow evaluation and analysis of cognitive linguistic function s/p acute CVA. Primary Medical Diagnosis: cerebellar stroke Pmhx: a fib, CKD, T2DM, sinusitis Pain Scale (0-10): 0 LOC / Participation: Alert and cooperative. Follows instructions: yes, no difficulty Orientation: A&O x4 Functional Communication Deficits impact swallow function/safety, or response to therapy: No DYSPHAGIA Sialorrhea: No Xerostomia: No Hygiene: WFL Supplemental Oxygen Use: No COPD Dx: No Pain with Swallow: Denies. Pt seen at the bedside for clinical swallowing assessment. The pt was alert and participatory, oriented to all concepts with cohesive description of events leading up to hospitalization. Speech production was clear with no evidence of dysarthria. Expressive and receptive language skills intact. Pt and spouse both endorsing perception that acute lacunar infarction did not alter speech, language, or cognition. Formal assessment not indicated at this time. Pt and spouse were encouraged to monitor potential changes in cognitive linguistic status and alert PCP accordingly. Oromotor exam was unremarkable apart from report of persistent facial numbness (L lower quadrant; labial, buccal, lingual). Pt reports this continues to improve, with upper lip sensation returning to normal. Strength, coordination, speed and ROM of oral musculature all WNL. Structures intact. Administered PO trials of thin liquids via cup and straw, pureed solids, soft solids, regular solids, and medications in conjunction with RN. Overall, oral and pharyngeal phases of swallow are WFL for normal PO intake. Pt w/ adequate bolus preparation and complete clearance of material from oral cavity despite sensory changes. No overt signs of aspiration were observed across PO trials. Pt is appropriate for continuance of a regular diet and thin liquids with adherence to general precautions as outlined below. Results and recommendations were discussed with the pt, RN. Provided additional information re: sensory exercises (temperature, pressure) to stimulate intraoral cavity and outer facial surface. Discussed use of lingual sweep and liquid wash to ensure consistent oral cavity clearance. Pt was additionally encouraged to masticate on R side to avoid injury and compensate for L sided numbness. ST ASSESSMENT SUMMARY Aspiration Risk: Low. Negative prognostic indicators include acute cerebral infarct with oral sensory changes. BALDEMAR: Level 6, WFL/modified independence. Speech Therapy Need Swallow status is within functional limits from a clinical standpoint. No cognitive linguistic or motor speech deficits observed. Further skilled interventions are not warranted at this time. Please do not hesitate to contact the ST department if change in status warrants re-evaluation. RECOMMENDATIONS 1. Diet: Regular, thin liquids. 2. Medications: Whole, with thin liquids. 3. Compensatory Techniques: regular oral hygiene, upright positioning during PO intake, masticate on R side, complete intermittent lingual sweep and liquid wash to ensure consistent oral cavity clearance, complete sensory stim exercises as discussed at the bedside (temperature, pressure) to address L lower facial numbness. 4. Supervision with meals/snacks: not warranted. Thank you for this referral. Savannah Martinez M.S., [facility]-MILITARY PROFESSIONAL Speech Therapist [place]
--- NOTE | 2019-03-11 09:47 | NUR ---
ST Impression Bedside dysphagia evaluation complete. Please see full report for detailed information. Swallow status is within functional limits despite persistent oral/facial sensory changes. No cognitive-linguistic or motor speech deficits observed. Pt is appropriate for continuance of a regular diet and thin liquids with adherence to general precautions as outlined below. Results and recs were discussed with the pt and spouse. Provided additional info re: sensory exercises (pressure, tempurature) to stimulate oral cavity and outer facial surface. Discussed use of lingual sweep and liquid wash to ensure consistent oral cavity clearance. Further ST interventions are not warranted at this time. Recommend d/c home when medically cleared. Please do not hesitate to contact the ST department if change in status warrants re-evaluation. Thank you for this referral. RECOMMENDATIONS 1. Diet: Regular, thin liquids. 2. Medications: Whole, with thin liquids. 3. Compensatory Techniques: regular oral hygiene, upright positioning during PO intake, masticate on R side, complete intermittent lingual sweep and liquid wash to ensure consistent oral cavity clearance, complete sensory stim exercises as discussed at the bedside (temperature, pressure) to address L lower facial numbness. 4. Supervision with meals/snacks: not warranted.
[2019-03-11 12:16] VITALS: BP 146/73
[2019-03-11] MEDS ORDERED: ASPI-870 PO (15:20)
[2019-03-11 15:21] VITALS: BP 178/85
--- NOTE | 2019-03-11 15:40 | Hospitalist Depart ---
Discharge Summary Reason for Hosp/Final Diag: (1) Cerebellar stroke Status: Acute Hospital Course & Plan: He presented with 7 days of left sided tongue and lips numbness. MRI showed evidence of a left cerebellar peduncle infarct. Neurology recommended admission to get an MRA of head/neck, continue Eliquis, and add ASA. The patient was switched from warfarin to Eliquis approximately 2 weeks, but neurology didn't think it was necessarily a treatment failure. He was started on aspirin 81mg daily. We were unable to do MRA as he could not have gadolinium due to chronic renal failure. It is suspected he probably had an embolic event related to his atrial fibrillation. He did have an echocardiogram in February of this year, which was rather unremarkable. A carotid ultrasound was done as well. Final report is pending, but antegrade flow was noted in vertebral arteries and no significant stenoses. Speech/Swallowing therapy did see him during his stay. They only recommend some minor behavioral modifications during eating. He will need to follow up closely with his primary care physician (Dr. Larry) and cardiology (Dr. Hodges). (2) Atrial fibrillation Status: Chronic Hospital Course & Plan: He apparently has had atrial fibrillation for about 6 months. He had a previous ablation attempt aborted due to a pericardial effusion. He is scheduled to have a second attempt done on 04/02/19. He has been chronically on amiodarone 200mg daily, but was advised to stop on 03/12 in preparation for the the ablation. I did try to contact Dr. Hodges regarding this acute event and the plans to re-try the ablation. Unfortunately, I was unable to talk to him prior to discharge. We did advise Mr. Zhao to follow up with Dr. Hodges's office in the next few days to make an appointment to discuss this. He was on telemetry throughout his stay and was in sinus rhythm the entire time. (3) CKD (chronic kidney disease) stage 4, GFR 15-29 ml/min Status: Chronic Hospital Course & Plan: Secondary to ARF from sepsis from liver abscesses 08/2018. He was on acute dialysis for 3 weeks. Baseline creatinine has been 3.3 for the last month. He is chronically on losartan. Will need to follow creatinine after starting ASA. (4) Skin erythema Status: Acute Hospital Course & Plan: He had a sunburn over a week ago and was finishing or had just finished doxycycline which likely exacerbated the burn. The skin on the dorsal aspect of his fingers is erythematous, but atypical for sunburn. (5) T2DM (type 2 diabetes mellitus) Status: Chronic Hospital Course & Plan: Diet controlled. (6) Sinusitis Status: Chronic Hospital Course & Plan: Seen on CT of head. Followed by Cinthia Moreno. Continue mupirocin treatment. Departure Weight (Pounds): 207 Weight (Ounces): 8.0 Result Diagram: 03/10/19 1005 03/10/19 1005 Item Value Date Time Albumin 3.9 g/dl 03/10/19 1005 Total Protein 7.3 g/dl 03/10/19 1005 B-Type Natriuretic Peptide 9 pg/ml 03/10/19 1008 C-Reactive Protein < 0.5 mg/dl 03/10/19 1005 Alkaline Phosphatase 77 U/L 03/10/19 1005 Aspartate Amino Transf (AST/SGOT) 21 U/L 03/10/19 1005 Alanine Aminotransferase (ALT/SGPT) 27 U/L 03/10/19 1005 Total Bilirubin 0.7 mg/dl 03/10/19 1005 Troponin I < 0.012 ng/ml 03/10/19 1153 Total Creatine Kinase 48 U/L L 03/10/19 1153 Lactate 1.3 mmol/L 03/10/19 1153 Calcium Level 9.2 mg/dl 03/10/19 1005 Lipase 118 U/L 03/10/19 1153 Activated Partial Thromboplast Time 39 seconds H 03/10/19 1008 Prothromb Time International Ratio 1.21 03/10/19 1008 Prothrombin Time 15.3 seconds H 03/10/19 1008 Imaging PATIENT NAME: Charlotte Zhao : 1955 MR: [id number] V: [id number] EXAM DATE: ORDERING PHYSICIAN: EVAN IVY TECHNOLOGIST: Location: [facility] Patient: Charlotte Zhao : 1955 Visit/Account:[id number] Date of Sevice: 03/10/[address] scan without contrast HISTORY: HEADACHE COMPARISONS: February 10, 2019 TECHNIQUE: Non-contrast head CT was performed with sagittal and coronal reformations. One of the following dose optimization techniques was utilized in the perform ance of this exam: automated exposure control; adjustment of the mA and/or kV according to patient size; or use of iterative reconstruction technique. Specific details can be referenced in the facility's radiology CT exam operational policy. FINDINGS: There is no intracranial hemorrhage, hydrocephalus or midline shift. The basal cisterns, weber-white differentiation, and convexity sulci are maintained. Normal orbital soft tissues. Mild unchanged patchy white matter hypoattenuation. Clear mastoid air cells. The right maxillary sinus is nearly completely opacified with mucosal thickening and secretions similar to prior. The sphenoid sinus is completely filled with mucosal thickening and dense secretions similar to prior. No acute osseous abnormality. IMPRESSION: No acute intracranial abnormality. Unchanged right maxillary sinus and sphenoid sinus chronic sinus disease. The secretions within the sphenoid sinus are dense as before which may reflect inspissated secretions or chronic fungal colonization. Report Dictated By: Colten Singh MD at 03/10/2019 10:52 AM Report E-Signed By: Colten Singh MD at 03/10/2019 10:58 AM WSN:[id number] PATIENT NAME: Charlotte Zhao : 1955 MR: [id number] V: [id number] EXAM DATE: ORDERING PHYSICIAN: EVAN IVY TECHNOLOGIST: Location: [facility] Patient: Charlotte Zhao : 1955 Visit/Account:[id number] Date of Sevice: 03/10/2019 EXAMINATION: MRI Brain without intravenous contrast HISTORY: Left facial numbness. COMPARISON: Brain MRI dated 11/11/2018. TECHNIQUE: Multi-planar, multi-sequence brain MRI was performed without IV contrast administration. FINDINGS: Brain volume: Normal. Sagittal midline structures: Negative. Ventricles: Negative. Acute ischemic changes: Restricted diffusion and T2/FLAIR hyperintensity in the left cerebellar peduncle. Hemorrhage: None. Masses / edema: None. Weber-white: Negative. White matter: Patchy FLAIR hyperintensity in the periventricular and deep white matter. Vessels: Negative. Extra-axial: Negative. Calvarium / scalp: Negative. Skull base: Negative. Visualized sinuses / orbits: T1 hyperintense and T2 hypointense material in the right maxillary and left sphenoid sinuses suspicious for inspissated secretions or fungal colonization. Rightward nasal septal deviation. Visualized upper neck: Right atlantooccipital joint effusion. IMPRESSION: Restricted diffusion in the left cerebellar peduncle measuring 1.6 cm. Most likely an acute lacunar infarction. Although, given the presence of white matter disease this could be demyelination. No hemorrhage. No significant mass effect. Results were called to EVAN IVY at 03/10/2019 1:09 PM. Report Dictated By: Sujit Casanova MD at 03/10/2019 1:06 PM Report E-Signed By: Sujit Casanova MD at 03/10/2019 1:14 PM WSN:[id number] EKG PATIENT NAME: CHARLOTTE ZHAO DOB: [id number] MR: [id number] V: [id number] EXAM DATE: ORDERING PHYSICIAN: DEANN PABLO TECHNOLOGIST: Test Reason : HX of AFIB Blood Pressure : / mmHG Vent. Rate : 070 BPM Atrial Rate : 070 BPM P-R Int : 192 ms QRS Dur : 108 ms QT Int : 436 ms P-R-T Axes : 048 064 042 degrees QTc Int : 470 ms Normal sinus rhythm Normal ECG When compared with ECG of 10-FEB-2019 10:55, Relatively unchanged Confirmed by DEANN PABLO ([id number]) on 03/11/2019 6:46:26 AM Referred By: Confirmed By:DEANN PABLO Condition: Improved Discharge: Home Time Spent: > 30 min Discharge Instructions Home Meds Active Scripts Aspirin (Children's Aspirin) 81 Mg Tab.chew, 81 MG PO QDAY for 30 Days, #30 TAB.CHEW 1 Refill Prov:MARCOS SAHNI MD 03/11/19 Meclizine Hcl (MECLIZINE HCL) 25 Mg Tab.chew, 25 MG PO Q6H PRN for DIZZINESS, #30 TAB.CHEW Prov:DEANN PABLO MD 03/10/19 Mupirocin (MUPIROCIN) 22 Gm Oint...g., 1 GRISELDA NA BID for 14 Days, #1 TUBE 3 Refills Prov:CINTHIA MORENO PA-C 02/19/19 Reported Medications Fenofibrate,Micronized (FENOFIBRATE) 67 Mg Capsule, 67 MG PO DAILY, CAPSULE 03/10/19 Apixaban (ELIQUIS) 5 Mg Tablet, 5 MG PO BID 03/10/19 Losartan Potassium (LOSARTAN POTASSIUM) 25 Mg Tablet, 25 MG PO QDAY 02/10/19 Amiodarone Hcl (AMIODARONE HCL) 200 Mg Tablet, 200 MG PO DAILY 12/25/18 Cetirizine Hcl (ZYRTEC) 10 Mg Capsule, 5 MG PO QDAY PRN for ALLERGY SYMPTOMS, CAPSULE 10/27/18 Pantoprazole Sodium (PANTOPRAZOLE SODIUM) 40 Mg Tablet.dr, 20 MG PO QDAY, TAB.SR 06/30/18 Montelukast Sodium (SINGULAIR) 10 Mg Tablet, 1 TAB PO HS, TAB 06/30/18 Multivitamins W-Minerals (Multivitamin) 1 Cap Capsule, 1 CAP PO DAILY 12/18/07 Glucosamine Sulfate (Glucosamine) 500 Mg Capsule, 500 MG PO 12/18/07 Discontinued Reported Medications Warfarin Sodium (WARFARIN SODIUM) 5 Mg Tablet, 5 MG PO QDAY, TAB 10/27/18 Fenofibrate,Micronized (TRICOR) 145 Mg Tab, 67 MG PO QDAY, #10 TAB 10/27/18 Discontinued Scripts Doxycycline Hyclate (DOXYCYCLINE HYCLATE) 100 Mg Tablet, 100 MG PO BID for 10 Days, #20 TAB 0 Refills Prov:CINTHIA MORENO PA-C 02/19/19 Amoxicillin/Potassium Clav (AUGMENTIN 500-125 TABLET) 1 Each Tablet, 1 TAB PO Q12H for 10 Days, #20 TAB Prov:ARTURO ROMANSSE GRANULATING BLENDER 02/10/19 Diet: Diabetic Activity: As Tolerated, No Exertion Special Instructions: Follow up with Dr. Larry in next 1-2 weeks or sooner if any problems. Follow up with Dr. Hodges office in next 1-2 days to discuss follow up. Copies to: ARIANA LARRY MD; PAULINO HODGES MD ; Venous Thromboembolism Antithrombotics Is Pt On Any Antithrombotics?: Yes MARCOS SAHNI MD Mar 11, 2019 15:40
--- NOTE | 2019-03-11 15:50 | RADIOLOGY IMAGING REPORT ---
FACILITY: [facility] - [place], [place] PATIENT NAME: Edison Marquez : 1955 MR: [id number] V: [id number] EXAM DATE: ORDERING PHYSICIAN: MARCOS SAHNI TECHNOLOGIST: Location: [facility] Patient: Edison Marquez : 1955 Visit/Account:[id number] Date of Sevice: 03/11/2019 CAROTID HISTORY: Numbness left side of face, abnormal MR COMPARISON: MR the brain performed March 10, 2019 FINDINGS: Grayscale, duplex and color Doppler interrogation of the extracranial carotid and vertebral arteries was performed bilateral. On the right, peak systolic velocities within the common and internal carotid arteries are 107 and 81 cm/sec respectively. There is a small amount of plaque at the right carotid bulb. Antegrade flow w ithin the common, internal and external carotid arteries as well as vertebral artery. ICA/CCA ratio 0 .7. On the left, peak systolic velocities within the common and internal carotid arteries are 131 and 72 cm/sec respectively. There is a small amount of plaque at the left carotid bulb extending into the p roximal left internal carotid artery. Antegrade flow within the common, internal and external caroti d arteries as well as vertebral artery. ICA/CCA ratio 0.8. IMPRESSION: Small amount of plaque at the right carotid bulb Small amount of plaque left carotid bulb extending into the proximal left internal carotid artery alt yared no hemodynamically significant lesions by velocity criteria Velocity criteria are extrapolated from diameter data as defined by the Society of Radiologists in [facility] Consensus Conference Radiology 2003; 229;340-346 Report Dictated By: Eugenia Pabon MD at 03/11/2019 3:37 PM Report E-Signed By: Eugenia Pabon MD at 03/11/2019 3:43 PM WSN:[id number]
== END 2019-03-11 16:27 | disposition home or self-care (01) | DRG 65 ==
LOC: ER 09:37 → MED 15:07
PROVIDERS: ADMIT Internal Medicine; ATTEND Internal Medicine
DX: I63.81 Other cerebral infarction due to occlusion or stenosis of small artery (principal); N18.4 Chronic kidney disease, stage 4 (severe); I12.9 Hypertensive chronic kidney disease with stage 1 through stage 4 chronic kidney disease, or unspecified chronic kidney disease; E11.22 Type 2 diabetes mellitus with diabetic chronic kidney disease; K21.9 Gastro-esophageal reflux disease without esophagitis; I48.2 Chronic atrial fibrillation; L55.9 Sunburn, unspecified; T49.0X5A Adverse effect of local antifungal, anti-infective and anti-inflammatory drugs, initial encounter; J32.9 Chronic sinusitis, unspecified; Z79.01 Long term (current) use of anticoagulants
CPT/HCPCS: 70450; 70551; 82040; 82247; 82310; 82374; 82435; 82550; 82565; 82947; 83605; 83690; 83880; 84075; 84132; 84155; 84295; 84450; 84460; 84484; 84520; 85025; 85610; 85651; 85730; 86140; 93005; 93880; 99284

== ENCOUNTER → 2019-04-16 | Outpatient (CLI) | payer MEDICARE ==
[~2019-04-16] MED LIST changes: +APIX5TAB PO; +ASPI-870 PO; +FENO67CA3 PO
[2019-04-16 08:46] LABS: PLATELET COUNT, AUTOMATED 245 K/uL (150-450)
== END ==
LOC: LAB 08:22
PROVIDERS: ATTEND Internal Medicine Nephrology
DX: N18.3 Chronic kidney disease, stage 3 (moderate) (principal); N17.9 Acute kidney failure, unspecified; E11.8 Type 2 diabetes mellitus with unspecified complications
CPT/HCPCS: 36415; 82040; 82247; 82310; 82374; 82435; 82565; 82570; 82947; 84075; 84100; 84132; 84155; 84156; 84295; 84450; 84460; 84520; 85025